=== PATIENT | female | born 1970 | race Caucasian/White ===

== ENCOUNTER 2016-07-02 01:03 | Inpatient (IN) | payer BC ==
[2016-07-02] MEDS ORDERED: ONDANSETRON 4 MG/2 ML VIAL IVP STA (01:54)
[2016-07-02] MEDS ORDERED: BACLOFEN 10 MG TAB PO STA (01:55)
[2016-07-02] MEDS ORDERED: MORPHINE SULFATE 4 MG/ML SYRINGE IV STA ×2 (02:08→05:32)
[2016-07-02 02:57] LABS: Amorphous Sediment,Urine Occasional /hpf; Appearance,Urine Cloudy (Clear); Bacteria,Urine Rare /hpf; Bilirubin,Urine Negative (Negative); Glucose,Urine (UA) Negative (Negative); Granular Casts,Urine 1 /lpf (0); Ketones,Urine Negative (Negative); Leukocyte Esterase,Urine Negative (Negative); Mucus,Urine Rare /hpf; Nitrite,Urine Negative (Negative); PH, Urine 6.5 (5.0-8.0); Particle Count 6167; Protein,Urine Trace (Negative); RBC,Urine 8 /hpf (0-5); Specific Gravity,Urine 1.016 (1.001-1.035); Squamous Epithelial Cell,Urine 8 /hpf (0-4); UA Billing (MACRO vs. MICRO) MICRO; Urobilinogen,Urine <2.0 mg/dL (<2.0); WBC,Urine 7 /hpf (0-5)
--- NOTE | 2016-07-02 03:03 | XR ---
EXAM: XR Right Tib/Fib CLINICAL HISTORY: Reason: Pain TECHNIQUE: X-ray right tib/fib. COMPARISON: No relevant prior studies available. FINDINGS: No acute fracture. Mild degenerative changes. Possible soft tissue swelling versus body habitus. IMPRESSION: No acute fracture.
--- NOTE | 2016-07-02 03:10 | ED ---
Lower Extremity Injury HPI - General Chief Complaint: Extremity Injury, Lower Stated Complaint: FALL Time Seen by Provider: 07/02/16 01:19 Source: patient, family Mode of arrival: EMS Limitations: no limitations - History of Present Illness Initial Comments: This patient is a 45-year-old woman with history of MS, who presents to be evaluated for a right ankle injury. The patient states that she had not been feeling well for much of the day, including having some worsening of the spasms that she usually gets. She states that she had gone out to get into her van, after a visit at her sister's home tonight. She states that she felt too weak to get into the van, slumped against the side of it and then went to the ground. She believes that her ankle twisted. She denies any other injury, stating she did not hit her head or neck, chest, back or abdomen. MD Complaint: ankle injury Onset/Timin -: hour(s) Injury: Ankle: Right Type of Injury: blunt Place: street/outdoors Severity: moderate Improves With: nothing Worsens With: weight bearing Context: fall Associated Symptoms: unable to bear weight - Related Data Allergies Allergy/AdvReac Type Severity Reaction Status Date / Time erythromycin base Allergy Rash/Hives Verified 07/02/16 01:32 Penicillins Allergy Rash/Hives Verified 07/02/16 01:32 Review of Systems ROS Statement: Those systems with pertinent positive or pertinent negative responses have been documented in the HPI. ROS Other: All systems not noted in ROS Statement are negative. Constitutional: Reports: weakness (Bilateral legs). Denies: fever, chills Respiratory: Denies: cough, dyspnea Cardiovascular: Denies: chest pain, palpitations, edema Gastrointestinal: Denies: abdominal pain, vomiting, diarrhea Genitourinary: Denies: dysuria Musculoskeletal: Reports: as per HPI, arthralgia. Denies: back pain Skin: Denies: rash Neurological: Reports: weakness. Denies: headache, numbness Past Medical History Past Medical History: Fibromyalgia, GERD/Reflux, Hypertension Additional Past Medical History / Comment(s): MS, endometriosis History of Any Multi-Drug Resistant Organisms: None Reported Past Surgical History: Section, Orthopedic Surgery Additional Past Surgical History / Comment(s): right hip, left foot , left knee , 3 laps for endometriosis Past Psychological History: No Psychological Hx Reported Smoking Status: Current every day smoker Past Alcohol Use History: Occasional Past Drug Use History: None Reported General Exam Limitations: no limitations General appearance: alert, obese Head exam: Present: atraumatic, normocephalic Eye exam: Present: normal appearance. Absent: scleral icterus, conjunctival injection Neck exam: Present: normal inspection, full ROM Respiratory exam: Present: normal lung sounds bilaterally. Absent: respiratory distress, wheezes, rales, rhonchi, stridor Cardiovascular Exam: Present: regular rate, normal rhythm, normal heart sounds. Absent: systolic murmur, diastolic murmur, rubs, gallop Extremities exam: Present: normal inspection, tenderness, normal capillary refill, joint swelling, other (The patient has an area of erythema and warmth in the anterior and lateral aspect of the right leg just proximal to the ankle.) . Absent: full ROM, pedal edema, calf tenderness Neurological exam: Present: alert Skin exam: Present: warm, dry, intact, normal color. Absent: rash Course Vital Signs 07/02/16 07/02/16 07/02/16 01:05 03:00 04:00 Temperature 99.1 F Pulse Rate 109 H 130 H 129 H Respiratory 22 20 20 Rate Blood Pressure 163/121 166/103 150/91 O2 Sat by Pulse 98 100 100 Oximetry 07/02/16 04:46 Temperature 100.8 F H Pulse Rate Respiratory Rate Blood Pressure O2 Sat by Pulse Oximetry Medical Decision Making - Medical Decision Making On reevaluation, it is noted that the patient's area of erythema and warmth is now circumferential and concerning for cellulitis. Patient has had fever as well. Antibiotics administered. Patient to be admitted for the initial treatment of the cellulitis of her right lower extremity. - Lab Data Result diagrams: 07/02/16 02:50 07/02/16 02:50 Lab Results 07/02/16 07/02/16 07/02/16 Range/Units 01:30 02:50 02:50 WBC 22.5 H (3.8-10.6) k/uL RBC 4.92 (3.80-5.40) m/uL Hgb 14.4 (11.4-16.0) gm/dL Hct 43.6 (34.0-46.0) % MCV 88.5 (80.0-100.0) fL MCH 29.3 (25.0-35.0) pg MCHC 33.1 (31.0-37.0) g/dL RDW 13.9 (11.5-15.5) % Plt Count 234 (150-450) k/uL Neutrophils % 93 % Lymphocytes % 4 % Monocytes % 2 % Eosinophils % 1 % Basophils % 0 % Neutrophils # 20.8 H (1.3-7.7) k/uL Lymphocytes # 0.9 L (1.0-4.8) k/uL Monocytes # 0.5 (0-1.0) k/uL Eosinophils # 0.1 (0-0.7) k/uL Basophils # 0.1 (0-0.2) k/uL Sodium 143 (137-145) mmol/L Potassium 3.7 (3.5-5.1) mmol/L Chloride 102 (98-107) mmol/L Carbon Dioxide 29 (22-30) mmol/L Anion Gap 12 mmol/L BUN 16 (7-17) mg/dL Creatinine 0.80 (0.52-1.04) mg/dL Est GFR (MDRD) Af Amer >60 (>60 ml/min/1.73 sqM) Est GFR (MDRD) Non-Af >60 (>60 ml/min/1.73 sqM) Glucose 126 H (74-99) mg/dL Plasma Lactic Acid Paul (0.7-2.0) mmol/L Calcium 10.2 (8.4-10.2) mg/dL Total Bilirubin 0.7 (0.2-1.3) mg/dL AST 16 (14-36) U/L ALT 32 (9-52) U/L Alkaline Phosphatase 136 H (38-126) U/L Total Protein 7.5 (6.3-8.2) g/dL Albumin 4.4 (3.5-5.0) g/dL Urine Color Yellow Urine Appearance Cloudy H (Clear) Urine pH 6.5 (5.0-8.0) Ur Specific [place] 1.016 (1.001-1.035) Urine Protein Trace H (Negative) Urine Glucose (UA) Negative (Negative) Urine Ketones Negative (Negative) Urine Blood Trace H (Negative) Urine Nitrite Negative (Negative) Urine Bilirubin Negative (Negative) Urine Urobilinogen <2.0 (<2.0) mg/dL Ur Leukocyte Esterase Negative (Negative) Urine RBC 8 H (0-5) /hpf Urine WBC 7 H (0-5) /hpf Ur Squamous Epith Cells 8 H (0-4) /hpf Amorphous Sediment Occasional H (None) /hpf Urine Bacteria Rare H (None) /hpf Granular Casts 1 (0) /lpf Urine Mucus Rare H (None) /hpf 07/02/16 Range/Units 03:50 WBC (3.8-10.6) k/uL RBC (3.80-5.40) m/uL Hgb (11.4-16.0) gm/dL Hct (34.0-46.0) % MCV (80.0-100.0) fL MCH (25.0-35.0) pg MCHC (31.0-37.0) g/dL RDW (11.5-15.5) % Plt Count (150-450) k/uL Neutrophils % % Lymphocytes % % Monocytes % % Eosinophils % % Basophils % % Neutrophils # (1.3-7.7) k/uL Lymphocytes # (1.0-4.8) k/uL Monocytes # (0-1.0) k/uL Eosinophils # (0-0.7) k/uL Basophils # (0-0.2) k/uL Sodium (137-145) mmol/L Potassium (3.5-5.1) mmol/L Chloride (98-107) mmol/L Carbon Dioxide (22-30) mmol/L Anion Gap mmol/L BUN (7-17) mg/dL Creatinine (0.52-1.04) mg/dL Est GFR (MDRD) Af Amer (>60 ml/min/1.73 sqM) Est GFR (MDRD) Non-Af (>60 ml/min/1.73 sqM) Glucose (74-99) mg/dL Plasma Lactic Acid Paul 1.3 (0.7-2.0) mmol/L Calcium (8.4-10.2) mg/dL Total Bilirubin (0.2-1.3) mg/dL AST (14-36) U/L ALT (9-52) U/L Alkaline Phosphatase (38-126) U/L Total Protein (6.3-8.2) g/dL Albumin (3.5-5.0) g/dL Urine Color Urine Appearance (Clear) Urine pH (5.0-8.0) Ur Specific [place] (1.001-1.035) Urine Protein (Negative) Urine Glucose (UA) (Negative) Urine Ketones (Negative) Urine Blood (Negative) Urine Nitrite (Negative) Urine Bilirubin (Negative) Urine Urobilinogen (<2.0) mg/dL Ur Leukocyte Esterase (Negative) Urine RBC (0-5) /hpf Urine WBC (0-5) /hpf Ur Squamous Epith Cells (0-4) /hpf Amorphous Sediment (None) /hpf Urine Bacteria (None) /hpf Granular Casts (0) /lpf Urine Mucus (None) /hpf Disposition Clinical Impression: Cellulitis, Sepsis affecting skin Disposition: ADMITTED IP TO THIS HOSP Condition: Fair Referrals: Nonstaff,Physician [Primary Care Provider] - 1-2 days
[2016-07-02 03:16] LABS: ALT 32 U/L (9-52); AST 16 U/L (14-36); Alkaline Phosphatase 136 U/L (38-126); Anion Gap 12 mmol/L; Blood Urea Nitrogen 16 mg/dL (7-17); Calcium 10.2 mg/dL (8.4-10.2); Carbon Dioxide 29 mmol/L (22-30); Chloride 102 mmol/L (98-107); Glucose 126 mg/dL (74-99); Non-African American GFR(MDRD) >60 (>60 ml/min/1.73 sqM); Potassium 3.7 mmol/L (3.5-5.1); Sodium 143 mmol/L (137-145); Total Bilirubin 0.7 mg/dL (0.2-1.3); Total Protein 7.5 g/dL (6.3-8.2)
[2016-07-02 03:20] LABS: Basophils # (A) 0.1 k/uL (0-0.2); Basophils % (A) 0 %; CH 29.9; CHCM 33.9; Eosinophils # (A) 0.1 k/uL (0-0.7); Eosinophils % (A) 1 %; HCT 43.6 % (34.0-46.0); HDW 2.72; HGB 14.4 gm/dL (11.4-16.0); Luc # (Auto) 0.08; Luc % (Auto) 0; Lymphocytes # (A) 0.9 k/uL (1.0-4.8); Lymphocytes % (A) 4 %; MCH 29.3 pg (25.0-35.0); MCHC 33.1 g/dL (31.0-37.0); MCV 88.5 fL (80.0-100.0); Mean Platelet Volume 6.6; Monocytes # (A) 0.5 k/uL (0-1.0); Monocytes % (A) 2 %; Neutrophils # (A) 20.8 k/uL (1.3-7.7); Neutrophils % (A) 93 %; RBC 4.92 m/uL (3.80-5.40); RDW 13.9 % (11.5-15.5); WBC 22.5 k/uL (3.8-10.6); WBC (Perox) 22.34
[2016-07-02] MEDS ORDERED: LEVOFLOXACIN 750MG-D5W PMX 750 MG in DEXTROSE/WATER 1 150ML.BAG IVPB STA (03:40)
[2016-07-02] MEDS ORDERED: IV VANCOMYCIN PER PHARMACY 1 EACH MISC MISCELLANE PRN (04:01)
[2016-07-02] MEDS ORDERED: NALOXONE 0.4 MG/ML 1 ML VIAL IV PRN (04:49)
[2016-07-02] MEDS ORDERED: VANCOMYCIN 2,250 MG in SODIUM CHLORIDE 0.9% 500 ML IVPB ONE (05:00)
[2016-07-02] MEDS: SODIUM CHLORIDE 0.9% 1,000 ML IV SCH ×2 (05:21→16:26)
[2016-07-02] MEDS ORDERED: SODIUM CHLORIDE 0.9% 1,000 ML IV ONE (05:32)
[2016-07-02] MEDS: ACETAMINOPHEN TAB 325 MG TAB PO PRN ×2 (06:12→22:06)
[2016-07-02 09:42] VITALS: BMI 54.8
[2016-07-02] MEDS: HEPARIN SODIUM,PORCINE 5,000 UNIT/ML 1 ML VIAL SQ SCH ×2 (10:00→16:26)
[2016-07-02] MEDS: VANCOMYCIN 2,250 MG in SODIUM CHLORIDE 0.9% 500 ML IVPB SCH (10:00)
[2016-07-02] MEDS: MORPHINE SULFATE 4 MG/ML SYRINGE IV PRN ×2 (10:17→17:14)
[2016-07-02] MEDS ORDERED: DEXTROAMPHETAMINE PO SCH (14:00)
[2016-07-02] MEDS ORDERED: AMPHETAMINE PO SCH (14:00)
[2016-07-02] MEDS: BACLOFEN 10 MG TAB PO SCH ×2 (14:03→20:22)
[2016-07-02] MEDS: PANTOPRAZOLE 40 MG TABLET PO SCH (14:03)
[2016-07-02] MEDS: OXcarbazepine 300 MG TAB PO SCH ×2 (14:03→20:21)
[2016-07-02] MEDS: tiZANidine 4 MG TAB PO SCH ×2 (14:04→20:22)
--- NOTE | 2016-07-02 14:36 | HP ---
DATE OF ADMISSION: 07/02/2016 CHIEF COMPLAINT: Increased generalized weakness and worsening of her spasms. HISTORY OF PRESENT ILLNESS: Ms. Alanis is a 45-year-old female with a past medical history of multiple sclerosis, morbid obesity, GERD, fibromyalgia, hypertension, coming to the hospital stating that she has been having generalized weakness and increased spasms than usual for the past couple of days. The patient states that she was trying to get to her house and her sister's home when she was trying to get into the van, she felt extremely weak and she could not get into the van and slumped against the side of it and then slowly went to the ground. She denies having any loss of consciousness and she thinks she might have twisted her ankle at that time. She denies having any shortness of breath. No chest pain. No history of recent travel. No history of loss of consciousness. No history of weakness of her extremities. No headaches. No blurring of her vision. Denies having any palpitations, REVIEW OF SYSTEMS: CONSTITUTIONAL: Generalized weakness and fatigue. No fevers or chills. RESPIRATORY: No cough. No difficulty in breathing. CARDIAC: No chest pain or palpitations. GI: No abdominal pain, nausea, or vomiting. : No dysuria or hematuria. MUSCULOSKELETAL: Patient thinks she might have twisted her right ankle when she slumped against the van. ENDOCRINE: Denies having any heat or cold intolerance. SKIN: No skin changes. HEMATOLOGICAL: No history of recurrent infections or easy bruising or petechia. All 13 review of systems are done and negative except for ones mentioned in the HPI. PAST MEDICAL HISTORY: Significant for multiple sclerosis, fibromyalgia, GERD and hypertension. PAST SURGICAL HISTORY: Positive for , orthopedic, right hip and left foot surgery. SOCIAL HISTORY: Current every day smoker. Occasional alcohol use. No history of intravenous drug abuse. ALLERGIES: SHE IS ALLERGIC TO PENICILLIN AND ERYTHROMYCIN. The patient's home medications: 1. Zanaflex 8 mg p.o. 3 times a day. 2. Turmeric root extract 500 mg capsule p.o. b.i.d. 3. Magnesium 40 mg capsule p.o. daily. 4. Vitamin D3 1000 units 2 tablets p.o. daily. 5. Biotin 5 mg p.o. q.h.s. 6. Paroxetine hydrochloride 30 mg p.o. daily. 7. Oxcarbazepine 300 mg p.o. b.i.d. 8. Neurontin 100 mg 2 pills p.o. q.h.s. 9. Interferon Beta 1A IM injection every Sunday. 10. Adderall 25 mg capsule ER p.o. in the morning. 11. Baclofen 20 mg p.o. 3 times a day and 10 mg 3 times a day. FAMILY HISTORY: Positive for hypertension. Vital signs temperature is 99.4, heart rate is 100 to 120 beats per minute, blood pressure 109/74, saturating at 94% on room air. GENERAL EXAMINATION: Morbidly obese female, lying comfortably in bed, appears to be no acute distress. HEAD: Atraumatic, normocephalic. EYES: Pupils, round, and reactive to light. NECK: Short. No thyromegaly. CARDIOVASCULAR: S1, S2 heard. LUNGS: Bilateral breath sounds are positive distantly. ABDOMEN: Soft, nontender. Bowel sounds are positive. Organomegaly cannot be appreciated due to huge body habitus. EXTREMITIES: Right lower extremity has cellulitis which is marked. No breakdown of superficial skin. No edema. No cyanosis. COFFEE URN ATTENDANT: Alert, awake, oriented x3. No focal neurological deficits. PSYCHIATRIC: Appropriate mood and affect. MUSCULOSKELETAL: No joint swellings or deformities. The patient's labs: White count of 22.5, hemoglobin 14.4, platelets of 234. Sodium 143, potassium 3.7, chloride 102, bicarb 29, BUN 16, creatinine 0.80. ASSESSMENT AND PLAN: 1. Sepsis secondary to right lower extremity cellulitis. The patient has been started on vancomycin, which is will be continued. 2. Multiple sclerosis. 3. Generalized weakness most likely secondary to #1. 4. Tachycardia. Most likely secondary to her sepsis. We will put her on a telemonitor. 5. History of fibromyalgia. 6. Hypertension. 7. Gastroesophageal reflux disease. 8. History of endometriosis. 9. Nicotine dependence. PLAN: The plan is to continue the patient on IV vancomycin, put her on a telemonitoring bed. We will resume her home medications and further recommendations to follow depending on the progress of the patient. MTDD
[2016-07-02] MEDS: GABAPENTIN 100 MG CAP PO SCH (20:22)
[2016-07-02] MEDS ORDERED: NON-FORMULARY DRUG (Biotin [Biotin] 5 MG) PO SCH (21:00)
[2016-07-03] MEDS: SODIUM CHLORIDE 0.9% 1,000 ML IV SCH ×4 (02:49→20:12)
[2016-07-03] MEDS: HEPARIN SODIUM,PORCINE 5,000 UNIT/ML 1 ML VIAL SQ SCH ×4 (02:49→22:59)
[2016-07-03] MEDS: VANCOMYCIN 2,250 MG in SODIUM CHLORIDE 0.9% 500 ML IVPB SCH (02:49)
[2016-07-03 07:24] LABS: Basophils % (A) 0 %; CH 29.5; CHCM 32.5; Eosinophils # (A) 0.1 k/uL (0-0.7); Eosinophils % (A) 1 %; HCT 36.2 % (34.0-46.0); HDW 2.73; HGB 11.6 gm/dL (11.4-16.0); Luc # (Auto) 0.17; Luc % (Auto) 2; Lymphocytes # (A) 1.4 k/uL (1.0-4.8); Lymphocytes % (A) 13 %; MCH 29.2 pg (25.0-35.0); MCV 91.2 fL (80.0-100.0); Mean Platelet Volume 6.7; Monocytes # (A) 0.5 k/uL (0-1.0); Monocytes % (A) 5 %; Neutrophils # (A) 8.4 k/uL (1.3-7.7); Neutrophils % (A) 79 %; RBC 3.97 m/uL (3.80-5.40); WBC 10.7 k/uL (3.8-10.6); WBC (Perox) 11.25
[2016-07-03] MEDS: MORPHINE SULFATE 4 MG/ML SYRINGE IV PRN ×3 (07:28→22:28)
[2016-07-03 08:05] LABS: Calcium 8.6 mg/dL (8.4-10.2); Potassium 4.2 mmol/L (3.5-5.1)
[2016-07-03] MEDS: PARoxetine 10 MG TAB PO SCH (08:45)
[2016-07-03] MEDS: CHOLECALCIFEROL 1,000 UNIT TAB PO SCH (08:46)
[2016-07-03] MEDS: BACLOFEN 10 MG TAB PO SCH ×3 (08:46→21:05)
[2016-07-03] MEDS: tiZANidine 4 MG TAB PO SCH ×3 (08:47→21:05)
[2016-07-03] MEDS: PANTOPRAZOLE 40 MG TABLET PO SCH (08:47)
[2016-07-03] MEDS: OXcarbazepine 300 MG TAB PO SCH ×2 (08:47→20:12)
[2016-07-03] MEDS ORDERED: INTERFERON BETA 30 MCG IM SCH (13:37)
--- NOTE | 2016-07-03 13:49 | US ---
EXAMINATION TYPE: US venous doppler duplex LE DATE OF EXAM: 07/03/2016 1:36 PM COMPARISON: NONE CLINICAL HISTORY: rule out dvt. Bilateral leg pain, patient on blood thinners, obese patient, exam do ne portable SIDE PERFORMED: Bilateral TECHNIQUE: The lower extremity deep venous system is examined utilizing real time linear array sonog nando with graded compression, doppler sonography and color-flow sonography. VESSELS IMAGED: External Iliac Vein (EIV) Common Femoral Vein Deep Femoral Vein Greater Saphenous Vein * Femoral Vein Popliteal Vein Small Saphenous Vein * Proximal Calf Veins (* superficial vessels) Technically difficult and limited study due to patient body habitus Right Leg: Appears negative for DVT Left Leg: Appears negative for DVT No popliteal fossa lesion is seen. IMPRESSION: THIS EXAMINATION IS NEGATIVE FOR DVT IN BOTH LEGS.
[2016-07-03 18:51] LABS: Glucose,Whole Blood 155 mg/dL (75-99)
[2016-07-03] MEDS ORDERED: HYDROcodone/APAP 5-325MG 1 EACH TAB PO PRN (20:10)
[2016-07-03] MEDS: GABAPENTIN 100 MG CAP PO SCH (20:12)
[2016-07-04] MEDS: MORPHINE SULFATE 4 MG/ML SYRINGE IV PRN (02:29)
[2016-07-04] MEDS: SODIUM CHLORIDE 0.9% 1,000 ML IV SCH ×2 (02:30→13:10)
[2016-07-04 07:18] LABS: Basophils % (A) 0 %; CH 29.1; CHCM 32.4; Eosinophils # (A) 0.2 k/uL (0-0.7); Eosinophils % (A) 2 %; HCT 32.3 % (34.0-46.0); HDW 2.98; HGB 10.8 gm/dL (11.4-16.0); Luc # (Auto) 0.19; Luc % (Auto) 2; Lymphocytes # (A) 1.4 k/uL (1.0-4.8); Lymphocytes % (A) 15 %; MCH 30.1 pg (25.0-35.0); MCHC 33.4 g/dL (31.0-37.0); MCV 90.1 fL (80.0-100.0); Mean Platelet Volume 6.8; Monocytes # (A) 0.4 k/uL (0-1.0); Monocytes % (A) 4 %; Neutrophils # (A) 7.4 k/uL (1.3-7.7); Neutrophils % (A) 76 %; RBC 3.58 m/uL (3.80-5.40); WBC 9.6 k/uL (3.8-10.6); WBC (Perox) 10.25
[2016-07-04 07:53] LABS: Calcium 8.6 mg/dL (8.4-10.2); Potassium 4.6 mmol/L (3.5-5.1)
[2016-07-04] MEDS: tiZANidine 4 MG TAB PO SCH ×3 (08:41→21:57)
[2016-07-04] MEDS: CLINDAMYCIN 150 MG CAP PO SCH ×2 (08:42→18:48)
[2016-07-04] MEDS: HEPARIN SODIUM,PORCINE 5,000 UNIT/ML 1 ML VIAL SQ SCH ×2 (08:42→18:10)
[2016-07-04] MEDS: PANTOPRAZOLE 40 MG TABLET PO SCH (08:42)
[2016-07-04] MEDS: BACLOFEN 10 MG TAB PO SCH ×2 (08:43→21:56)
[2016-07-04] MEDS: PARoxetine 10 MG TAB PO SCH (08:43)
[2016-07-04] MEDS: OXcarbazepine 300 MG TAB PO SCH ×2 (08:43→21:56)
[2016-07-04] MEDS ORDERED: CLINDAMYCIN 150 MG CAP PO SCH (09:00)
--- NOTE | 2016-07-04 09:36 | PN ---
DATE OF SERVICE: 07/03/2016 This 45-year-old woman who was admitted with significant cellulitis of the right leg, is on IV antibiotics. No chest pain or palpitations. No fever. The patient is also complaining of increasing tiredness and weakness. The patient also has history of multiple sclerosis also. REVIEW OF SYSTEMS: CARDIOVASCULAR: No angina or palpitations. RESPIRATORY: As mentioned earlier. GI: As mentioned earlier. : No dysuria. NERVOUS SYSTEM: No numbness or weakness. Current medications are reviewed and include Tylenol 650 q.6 p.r.n., Scott 10 mg, Lioresal, Vitamin D3, Cleocin, Neurontin, heparin, morphine, Narcan, Zofran, Trileptal, Protonix, Paxil, Silvadene, 0.9, Zanaflex and vancomycin. On exam, alert and oriented x3. Pulse is 77, blood pressure 93/58, respirations 16, temperature 98 degrees, pulse ox 94% on room air. HEENT: Conjunctivae normal. NECK: No jugular venous distention. CARDIOVASCULAR: S1 and S2, muffled. RESPIRATORY: Breath sounds diminished at the bases. No rhonchi, no crackles. ABDOMEN: Soft, obese, nontender. LEGS: Right leg cellulitis and erythema. Tenderness also present, which is marked with pen. NERVOUS SYSTEM: Higher function as mentioned. Moves all 4 limbs. Mildly diffusely weak. LYMPHATICS: No lymphadenopathy of neck, axillae or groin. SKIN: No ulcers, rashes or bleeding. LABS: WBC 10.7. Creatinine is 2.42. ASSESSMENT: 1. Acute cellulitis of the right leg on vancomycin. 2. Generalized tiredness and weakness for evaluation, rule out multiple sclerosis exacerbation . 3. Acute renal failure, possibly prerenal, or vancomycin induced. 4. History of multiple sclerosis. 5. Generalized weakness. 6. Tachycardia. 7. History of fibromyalgia. 8. Dehydration. 9. Hypertension, essential, present on admission. 10. Relative hypotension, currently. 11. Gastroesophageal reflux disease. 12. History of endometriosis. 13. History of nicotine dependence. 14. Super morbid obesity with body mass index of 54.9. 15. FULL CODE. RECOMMENDATIONS AND DISCUSSION: This 45-year-old woman who presented the multiple complex medical issues, we will we will monitor the patient closely, continue the current medications, continue with symptomatic treatment. I would recommend stop the vancomycin at this time. Otherwise, I would recommend Nephrology consultations. IV fluids. Avoid nephrotoxic medications. Other than that guarded prognosis. Further recommendations to follow. I would recommend local treatment as well. Further recommendations to follow.
--- NOTE | 2016-07-04 12:28 | P.NPCON ---
History of Present Illness - Reason for Consult acute renal failure - History of Present Illness Reason for consultation: Acute kidney injury History of present illness: Patient is a 45-year-old female seen in renal consultation for acute kidney injury. Her creatinine was 0.8 on admission on 07/02/2016 and was elevated at 2.42 yesterday. He is up to 4.28. Patient has history of multiple sclerosis. Patient states she felt quite weak and also sustained a fall and twisted her ankle. There is no evidence of fracture. She is noted to have right lower extremity cellulitis which is currently wrapped. She did receive IV vancomycin on admission but is now onclindamycin. She also admits to taking Motrin 800 mg twice daily for the last few months for pain control. She states the oral intake has been poor for the last few days. She denies any vomiting or diarrhea. Denies any chest pain or shortness of breath. Denies lower extremity edema. Hemodynamically she's been quite stable except her blood pressures are on the lower end of the systolic 90s. Denies any family history of renal disease. Vital signs are stable. General: The patient appeared well nourished and normally developed. HEENT: Head exam is unremarkable. Neck is without jugular venous distension. LUNGS: Lungs are clear to auscultation and percussion. Breath sounds decreased. HEART: Rate and Rhythm are regular. First and second heart sounds normal. No murmurs, rubs or gallops. ABDOMEN: Abdominal exam reveals normal bowel sounds. Non-tender and non- distended. No evidence of peritonitis. EXTREMITITES: No clubbing, cyanosis, or edema. Past Medical History Past Medical History: Fibromyalgia, GERD/Reflux, Hypertension Additional Past Medical History / Comment(s): MS, endometriosis History of Any Multi-Drug Resistant Organisms: None Reported Past Surgical History: Section, Orthopedic Surgery Additional Past Surgical History / Comment(s): right hip, left foot , left knee , 3 laps for endometriosis, hysterectomy Past Anesthesia/Blood Transfusion Reactions: No Reported Reaction Past Psychological History: No Psychological Hx Reported Smoking Status: Current every day smoker Past Alcohol Use History: Occasional Past Drug Use History: None Reported - Past Family History Mother Family Medical History: Thyroid Disorder Additional Family Medical History / Comment(s): MS, Father Family Medical History: Hypertension Medications and Allergies Home Medications Medication Instructions Recorded Confirmed Type Baclofen [Lioresal] 10 mg PO TID 07/02/16 07/02/16 History Baclofen [Lioresal] 20 mg PO TID 07/02/16 07/02/16 History Biotin 5 mg PO HS 07/02/16 07/02/16 History Cholecalciferol [Vitamin D3] 2,000 unit PO DAILY 07/02/16 07/02/16 History Dextroamphetamine/Amphetamine 25 mg PO QAM 07/02/16 07/02/16 History [Adderall Xr] Esomeprazole Magnesium [NexIUM] 40 mg PO DAILY 07/02/16 07/02/16 History Gabapentin [Neurontin] 200 mg PO HS 07/02/16 07/02/16 History Interferon Beta-1A [Avonex 30 MCG 30 mcg IM MO 07/02/16 07/02/16 History Syringe Kit] OXcarbazepine [Trileptal] 300 mg PO BID 07/02/16 07/02/16 History PARoxetine HCL [Paxil] 30 mg PO DAILY 07/02/16 07/02/16 History Turmeric Root Extract [Turmeric] 500 mg PO BID 07/02/16 07/02/16 History tiZANidine [Zanaflex] 8 mg PO TID 07/02/16 07/02/16 History Allergies Allergy/AdvReac Type Severity Reaction Status Date / Time erythromycin base Allergy Rash/Hives Verified 07/02/16 09:44 Penicillins Allergy Rash/Hives Verified 07/02/16 09:44 Physical Exam Vitals: Vital Signs Temp Pulse Pulse Pulse Resp BP Pulse Ox 07/04/16 07:00 98.3 F 78 16 93/59 100 07/03/16 23:00 98.0 F 74 20 98/55 94 L 07/03/16 19:57 95/57 07/03/16 19:54 98.0 F 77 16 93/58 94 L 07/03/16 15:29 99 85 16 07/03/16 14:22 98.4 F 85 16 92/57 94 L Intake and Output 07/03/16 07/04/16 07/04/16 22:59 06:59 14:59 Output Total 75 Balance -75 Output: Urine 75 Other: Voiding Method Bedside Commode # Voids 1 1 Results - Lab Results Most recent lab results Calcium 8.6 mg/dL (8.4-10.2) 07/04/16 06:48 07/04/16 06:48 07/04/16 06:48 Assessment and Plan Plan: assessment: #1. Oliguric acute kidney injury secondary to ATN secondary to NSAIDs and poor oral intake. Also concern for vancomycin toxicity. Baseline creatinine is 0.8 and is up to 4.28 today. Rule out urinary retention. #2. Right lower extremity cellulitis. #3. History of multiple sclerosis. #4. Metabolic acidosis secondary to acute kidney injury. plan: Continue normal saline to be run at 125 mL an hour. At oral sodium bicarbonate 650 mg twice daily. Repeat urinalysis. Check urine eosinophils. Check renal ultrasound. Monitor serial postvoid residuals and to insert Hawkins catheter greater than 250 mL present. Repeat electrolytes in the morning. I did discuss with the patient that if her renal function doesn't improve in the next 24-48 hours, will need to consider renal replacement therapy. Thank you for the consultation. I will continue to follow the patient with you during her hospital stay.
[2016-07-04] MEDS: SODIUM BICARBONATE TAB 650 MG TAB PO SCH ×2 (12:53→21:56)
[2016-07-04] MEDS: CHOLECALCIFEROL 1,000 UNIT TAB PO SCH (12:53)
[2016-07-04 13:02] LABS: Appearance,Urine Turbid (Clear); Bacteria,Urine Rare /hpf; Bilirubin,Urine Negative (Negative); Glucose,Urine (UA) Negative (Negative); Ketones,Urine Negative (Negative); Leukocyte Esterase,Urine Small (Negative); Mucus,Urine Rare /hpf; Nitrite,Urine Negative (Negative); Particle Count 45809; Protein,Urine 1+ (Negative); RBC,Urine 1 /hpf (0-5); Specific Gravity,Urine 1.014 (1.001-1.035); Squamous Epithelial Cell,Urine 43 /hpf (0-4); UA Billing (MACRO vs. MICRO) MICRO; Urobilinogen,Urine <2.0 mg/dL (<2.0)
--- NOTE | 2016-07-04 13:50 | US ---
EXAMINATION TYPE: US kidneys/renal and bladder DATE OF EXAM: 07/04/2016 1:24 PM COMPARISON: NONE CLINICAL HISTORY: 45-year-old female with acute kidney injury. TECHNIQUE: Multiple sonographic images of the kidneys and bladder were obtained. FINDINGS: DRIVE IN THEATER ATTENDANT NOTES: Morbidly obese patient Right Kidney: 13.9 x 5.1 x 6.6 cm Left Kidney: 13.0 x 5.9 x 6.9 cm Borderline large size of the kidneys possibly normal for this patient. Clinically correlate. There is no hydronephrosis on either side. Under distention of the bladder limits its evaluation. IMPRESSION: As above. No hydronephrosis.
[2016-07-04] MEDS ORDERED: ceFAZolin 2 GM in SODIUM CHLORIDE 0.9% 100 ML IVPB SCH (17:30)
--- NOTE | 2016-07-04 18:25 | PN ---
DATE OF SERVICE: 07/04/2016 This 45-year-old woman was admitted with cellulitis and recently on vancomycin. The patient also developed acute renal failure. Creatinine is up to 4. Patient is nonoliguric. The patient was also taking Motrin previously. The patient is closely monitored. PAST MEDICAL HISTORY: Reviewed. REVIEW OF SYSTEMS: CARDIOVASCULAR: No angina. RESPIRATORY: As mentioned earlier. GI: As mentioned earlier. : No dysuria. NERVOUS SYSTEM: No numbness or weakness. Current medications are reviewed and include: 1. Tylenol 650 q.6 p.r.n. 2. Melvin 10 mg. 3. Lioresal 4. Vitamin D3 2000 daily. 5. Cleocin. 6. Neurontin. 7. Heparin. 8. Narcan. 9. Interferon B. 10. Zofran. 11. Trileptal. 12. Protonix. 13. Paxil. 15. Zanaflex. PHYSICAL EXAMINATION: Patient is alert and oriented x3. Pulse is 74, blood pressure 115/40, no orthostatic change, respirations 20, temperature 98.2, pulse ox 100% on room air. HEENT: Conjunctivae normal. NECK: No jugular venous distention. CARDIOVASCULAR: S1 and S2. RESPIRATORY: Breath sounds diminished at the bases. No rhonchi, no crackles. ABDOMEN: Soft, obese, nontender. LEGS: right leg cellulitis improving. NERVOUS SYSTEM: Higher function as mentioned. Moves all four limbs. No focal motor deficits. LYMPHATIC: No lymphadenopathy in the neck, axillae or groin. SKIN: No ulcer, rash or bleeding. LABS: WBC 9.3, hemoglobin 10.2, sodium 134, creatinine is 4.28. UA shows small leukocyte esterase and budding yeast. Abdominal bladder ultrasound showed no hydronephrosis. Venous Doppler of the legs done yesterday showed no evidence of DVT. ASSESSMENT: 1. Acute cellulitis of the right leg, was on vancomycin. 2. Acute renal failure, possibly prerenal with acute tubular necrosis, medication-induced, possibly NSAIDs, dehydration as well as vancomycin. 3. Generalized tiredness and weakness for evaluation; possibly rule out multiple sclerosis acute exacerbation. 4. History of multiple sclerosis. 5. Generalized weakness. 6. Tachycardia. 7. History of fibromyalgia. 8. Dehydration, present admission. 9. Hypertension, essential, present on admission. 10. History of hypotension relative. 11. Gastroesophageal reflux disease. 12. History of endometriosis. 13. History of nicotine dependence. 14. Super morbid obesity, body mass index of 54.9. 15. FULL CODE. RECOMMENDATIONS AND DISCUSSION: I recommend to continue the current medications, continue monitoring and symptomatic treatment. Otherwise, at this time I would recommend to monitor the creatinine closely. Continue with IV fluids. Also recommend Infectious Disease evaluation also. Prognosis guarded. Further recommendations to follow. See orders for details. MTDD
[2016-07-04] MEDS: GABAPENTIN 100 MG CAP PO SCH (21:56)
--- NOTE | 2016-07-04 22:17 | P.CNNES ---
History of Present Illness Consult date: 07/04/16 History of Present Illness: The patient 45-year-old right-handed white female with a history of multiple sclerosis diagnosed in 2002. She's been on Avonex for the past 8 years. Her MS has been stable. 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 She started using the walker last November and prior to that she was using a cane. She states she's had a recent MRI of the brain and thoracic spine which did not show any problems. Patient reports that she was at her sister's house last Sunday when she was felt general weakness and wanted to go home. She then collapsed on her feet and could not get up. EMS was called and she was brought to the ER. It was found that she had a of warmth and tenderness and redness in the right ankle and she was admitted with cellulitis. Review of Systems Constitutional: Denies chills, Denies fever Eyes: denies blurred vision, denies pain Ears, nose, mouth and throat: Denies headache, Denies sore throat Cardiovascular: Denies chest pain, Denies shortness of breath Respiratory: Denies cough Neurological: Reports as per HPI Past Medical History Past Medical History: Fibromyalgia, GERD/Reflux, Hypertension Additional Past Medical History / Comment(s): MS, endometriosis History of Any Multi-Drug Resistant Organisms: None Reported Past Surgical History: Section, Orthopedic Surgery Additional Past Surgical History / Comment(s): right hip, left foot , left knee , 3 laps for endometriosis, hysterectomy Past Anesthesia/Blood Transfusion Reactions: No Reported Reaction Past Psychological History: No Psychological Hx Reported Smoking Status: Current every day smoker Past Alcohol Use History: Occasional Past Drug Use History: None Reported - Past Family History Mother Family Medical History: Thyroid Disorder Additional Family Medical History / Comment(s): MS, Father Family Medical History: Hypertension Medications and Allergies Home Medications Medication Instructions Recorded Confirmed Type Baclofen [Lioresal] 10 mg PO TID 07/02/16 07/02/16 History Baclofen [Lioresal] 20 mg PO TID 07/02/16 07/02/16 History Biotin 5 mg PO HS 07/02/16 07/02/16 History Cholecalciferol [Vitamin D3] 2,000 unit PO DAILY 07/02/16 07/02/16 History Dextroamphetamine/Amphetamine 25 mg PO QAM 07/02/16 07/02/16 History [Adderall Xr] Esomeprazole Magnesium [NexIUM] 40 mg PO DAILY 07/02/16 07/02/16 History Gabapentin [Neurontin] 200 mg PO HS 07/02/16 07/02/16 History Interferon Beta-1A [Avonex 30 MCG 30 mcg IM MO 07/02/16 07/02/16 History Syringe Kit] OXcarbazepine [Trileptal] 300 mg PO BID 07/02/16 07/02/16 History PARoxetine HCL [Paxil] 30 mg PO DAILY 07/02/16 07/02/16 History Turmeric Root Extract [Turmeric] 500 mg PO BID 07/02/16 07/02/16 History tiZANidine [Zanaflex] 8 mg PO TID 07/02/16 07/02/16 History Allergies Allergy/AdvReac Type Severity Reaction Status Date / Time erythromycin base Allergy Rash/Hives Verified 07/02/16 09:44 Penicillins Allergy Rash/Hives Verified 07/02/16 09:44 Physical Examination - Vital Signs Vital Signs: Vital Signs Temp Pulse Pulse Pulse Pulse Pulse Pulse 07/04/16 16:00 74 99 72 73 78 85 07/04/16 12:33 74 72 73 07/04/16 08:00 74 99 72 73 78 85 07/04/16 07:00 98.3 F 78 07/03/16 23:00 98.0 F 74 Resp BP BP BP BP Pulse Ox 07/04/16 16:00 16 07/04/16 12:33 115/49 134/63 100/57 07/04/16 08:00 16 07/04/16 07:00 16 93/59 100 07/03/16 23:00 20 98/55 94 L Intake and Output 07/04/16 07/04/16 07/04/16 06:59 14:59 22:59 Intake Total 2080 580 Output Total 175 400 Balance 1905 180 Intake: IV 1300 Sodium Chloride 0.9% 1, 1300 000 ml @ 125 mls/hr IV . Q8H LEATHA Rx#:[id number] Oral 780 580 Output: Urine 150 400 Post Void Residual 25 Other: Voiding Method Bedside Commode Bedside Commode # Voids 1 1 1 - Constitutional General appearance: cooperative, obese - EENT EENT: PERRL, hearing intact, vision intact - Respiratory Respiratory: lungs clear - Cardiovascular Cardiovascular: regular rate, normal S1, normal S2 - Integumentary Integumentary: normal - Neurologic Mental status she was awake alert and oriented chance of questions appropriately there is no aphasia or dysarthria Cranial nerve examination: PERRL, EOMI, VFF, V1/V2/V3 grossly intact, face symmetric Speech examination: intact Detailed motor examination: grossly full strength in all extremities Detailed sensory examination: intact - Psychiatric Psychiatric: mood/affect appropriate Results - Laboratory Findings CBC and BMP: 07/04/16 06:48 07/04/16 06:48 Abnormal Lab Findings: Abnormal Labs 07/02/16 07/02/16 07/02/16 01:30 02:50 02:50 WBC 22.5 H RBC Hgb Hct Neutrophils # 20.8 H Lymphocytes # 0.9 L Sodium Chloride Carbon Dioxide BUN Creatinine Glucose 126 H POC Glucose (mg/dL) Alkaline Phosphatase 136 H Urine Appearance Cloudy H Urine Protein Trace H Urine Blood Trace H Ur Leukocyte Esterase Urine RBC 8 H Urine WBC 7 H Ur Squamous Epith Cells 8 H Amorphous Sediment Occasional H Urine Bacteria Rare H Urine Mucus Rare H Urine Yeast (Budding) 07/03/16 07/03/16 07/03/16 06:26 06:26 18:50 WBC 10.7 H RBC Hgb Hct Neutrophils # 8.4 H Lymphocytes # Sodium Chloride 108 H Carbon Dioxide 19 L BUN 31 H Creatinine 2.42 H Glucose POC Glucose (mg/dL) 155 H Alkaline Phosphatase Urine Appearance Urine Protein Urine Blood Ur Leukocyte Esterase Urine RBC Urine WBC Ur Squamous Epith Cells Amorphous Sediment Urine Bacteria Urine Mucus Urine Yeast (Budding) 07/04/16 07/04/16 07/04/16 06:48 06:48 11:45 WBC RBC 3.58 L Hgb 10.8 L Hct 32.3 L Neutrophils # Lymphocytes # Sodium 134 L Chloride Carbon Dioxide 19 L BUN 42 H Creatinine 4.28 H Glucose 133 H POC Glucose (mg/dL) Alkaline Phosphatase Urine Appearance Turbid H Urine Protein 1+ H Urine Blood Small H Ur Leukocyte Esterase Small H Urine RBC Urine WBC Ur Squamous Epith Cells 43 H Amorphous Sediment Urine Bacteria Rare H Urine Mucus Rare H Urine Yeast (Budding) Few H Assessment and Plan (1) Cellulitis Status: Acute Code(s): L03.90 - CELLULITIS, UNSPECIFIED (2) Multiple sclerosis Status: Chronic Code(s): G35 - MULTIPLE SCLEROSIS Plan: The patient is a 45-year-old woman with multiple sclerosis which has been stable. She is admitted to the hospital after an episode of sudden weakness and fall without loss of consciousness. She is being treated for right leg cellulitis. Recommend carotid ultrasound. She was advised that she have a sleep study done as an outpatient to rule out LILY . There is no evidence of an MS exacerbation.
[2016-07-05] MEDS: HEPARIN SODIUM,PORCINE 5,000 UNIT/ML 1 ML VIAL SQ SCH ×4 (00:32→23:07)
[2016-07-05] MEDS: SODIUM CHLORIDE 0.9% 1,000 ML IV SCH ×4 (00:32→20:19)
[2016-07-05] MEDS: HYDROcodone/APAP 10-325MG 1 EACH TAB PO PRN ×3 (00:35→20:18)
[2016-07-05] MEDS ORDERED: VANCOMYCIN 2,250 MG in SODIUM CHLORIDE 0.9% 500 ML IVPB SCH (06:00)
--- NOTE | 2016-07-05 08:01 | CONS ---
DATE OF CONSULTATION: 07/04/2016 REASON FOR CONSULTATION: Right lower extremity cellulitis. HISTORY OF PRESENT ILLNESS: The patient is a 45-year-old female presenting to the ER at [facility] on 07/02/2016 with chief complaints of right ankle injury. The patient said that she had not been feeling well for most of the day including some usual for her in a patient who has a history of multiple sclerosis. The patient says she went out and continued to hurt after visiting her sister's home that night. She felt so weak to get into the van, slumped and she thought she may have twisted her ankle. Subsequently, the patient been evaluated by the ER physician. X-rays of the ankle were negative for any fracture. Patient noted to have swelling and redness of the leg. Lower extremity Doppler was negative for DVT. The patient did have a fever of 100.8, 101.3, followed by 102 with elevated white count of 22.5. Patient with a history of PENICILLIN ALLERGY but she has tolerated cephalosporin. She was started on vancomycin. The patient did have a normal kidney function on presentation to the ER of 0.8. However, within 24 hours she jumped to 2.42 and is up to 4.2 today with Vanco level of 38.8. She was switched over to clindamycin and Rocephin. I was asked to see the patient today for further recommendation regarding antibiotic therapy. REVIEW OF SYSTEMS: CONSTITUTIONAL: Positive for weakness and a fever that seems to have resolved. EYES: No complaint. ENT: No complaint. RESPIRATORY: No complaint. CARDIOVASCULAR: No complaint. GENITOURINARY: No complaint. GASTROINTESTINAL: No complaint. MUSCULOSKELETAL: As per HPI. INTEGUMENTARY: As per HPI. PSYCHOLOGIC: No complaint. ENDOCRINE: No complaint. NEUROLOGIC: No complaint. PAST MEDICAL HISTORY: Significant for fibromyalgia, hypertension, multiple sclerosis, endometriosis, gastroesophageal reflux disease. PAST SURGICAL HISTORY: , right hip and left foot surgery and left heel surgery and exploratory laparoscopy for endometriosis. SOCIAL HISTORY: The patient currently every day smoker who occasional drinks. No drug use. FAMILY HISTORY: No pertinent findings were noticed. ALLERGIES: ERYTHROMYCIN, PENICILLIN. Penicillin gives rash. No history of anaphylaxis and has taken Keflex without any problem. Medications currently include the patient is on Tylenol, [place], baclofen, vitamin D3, Neurontin, heparin, morphine, Narcan, vitamin A, Trileptal, Zofran, Paxil, clindamycin 600 p.o. t.i.d., that she has been on, vancomycin. On examination, blood pressure is 115/49 with a pulse of 74, temperature 98.3. She is 100% on room air. General description is a middle-age female up in the chair in no distress. No tachypnea or accessory muscle of respiration use. HEENT examination shows pallor. There is no scleral icterus. Oral mucous membrane is dry. NECK: Trachea central. There is no thyromegaly. LUNGS: Unlabored breathing. Clear to auscultation anteriorly. HEART: S1, S2. Regular rate and rhythm. ABDOMEN: Soft. No tenderness. EXTREMITIES: Right leg with swelling and minimal erythema, however, that has receded from the line that was placed yesterday. Slightly warm to touch. No evidence of any athlete's foot. No skin breakdown. No drainage. NEUROLOGICAL: The patient is awake, alert, oriented x3. Mood and affect normal. LABS: Hemoglobin is 10.9, white count 9.6 with a BUN of 42, creatinine 4.28. Blood culture obtained, currently pending. DIAGNOSTIC IMPRESSION AND PLAN: Patient with acute right lower extremity cellulitis with diffuse swelling and redness likely streptococcal disease with no evidence of any pressure or abscess formation. Did respond very well to the vancomycin; however, the patient has developed nephrotoxicity related to the same agent, which has been put on hold. PLAN: 1. Agree with discontinuation of vancomycin. However, I would also discontinue clindamycin to decrease the risk of C. difficile colitis. 2. We will start the patient on cefazolin 1 gram q.12. Dose adjusted to his kidney function. 3. Jayme wrap from just above the toe to below the knee. 4. Will follow up on the clinical condition and further adjust her medication if needed. Thank you for this consultation. We will follow this patient along with you. SHERIN
[2016-07-05] MEDS: ceFAZolin 1,000 MG in DEXTROSE/WATER 1 50ML.BAG IVPB SCH ×2 (08:03→20:19)
[2016-07-05] MEDS: CHOLECALCIFEROL 1,000 UNIT TAB PO SCH (08:04)
[2016-07-05] MEDS: SODIUM BICARBONATE TAB 650 MG TAB PO SCH ×2 (08:05→20:18)
[2016-07-05] MEDS: BACLOFEN 10 MG TAB PO SCH ×2 (08:05→20:17)
[2016-07-05] MEDS: PANTOPRAZOLE 40 MG TABLET PO SCH (08:06)
[2016-07-05] MEDS: OXcarbazepine 300 MG TAB PO SCH ×2 (08:07→20:17)
[2016-07-05] MEDS: PARoxetine 10 MG TAB PO SCH (08:07)
[2016-07-05] MEDS: tiZANidine 4 MG TAB PO SCH ×3 (08:08→23:05)
[2016-07-05] MEDS: ONDANSETRON 4 MG/2 ML VIAL IVP PRN ×2 (08:19→18:20)
[2016-07-05 08:24] LABS: Basophils % (A) 0 %; CH 29.8; CHCM 34.7; Eosinophils # (A) 0.3 k/uL (0-0.7); Eosinophils % (A) 3 %; HCT 33.3 % (34.0-46.0); HGB 11.4 gm/dL (11.4-16.0); Luc # (Auto) 0.14; Luc % (Auto) 2; Lymphocytes # (A) 1.2 k/uL (1.0-4.8); Lymphocytes % (A) 14 %; MCH 29.5 pg (25.0-35.0); MCHC 34.2 g/dL (31.0-37.0); MCV 86.3 fL (80.0-100.0); Monocytes # (A) 0.4 k/uL (0-1.0); Monocytes % (A) 5 %; Neutrophils # (A) 6.4 k/uL (1.3-7.7); Neutrophils % (A) 76 %; RBC 3.86 m/uL (3.80-5.40); RDW 13.9 % (11.5-15.5); WBC 8.4 k/uL (3.8-10.6); WBC (Perox) 8.73
[2016-07-05 08:32] LABS: Calcium 9.2 mg/dL (8.4-10.2); Potassium 4.1 mmol/L (3.5-5.1)
--- NOTE | 2016-07-05 11:15 | P.PN ---
Subjective Patient is seen in follow-up for acute kidney injury. Her baseline creatinine is 0.8 and has been gradually worsening the last couple of days. It was up to 4.28 yesterday and is stable at 4.28 today. Her urine output has improved significantly. Patient presented with lower extremity cellulitis and was given a dose of IV vancomycin. Her vancomycin level as of yesterday was 38.8. Vancomycin is currently held and she is maintained on IV cefazolin per infectious disease recommendations. She's currently sitting up in chair. Denies any chest pain or shortness of breath. No vomiting or diarrhea. Appetite is fair. Vital signs are stable. General: The patient appeared well nourished and normally developed. HEENT: Head exam is unremarkable. Neck is without jugular venous distension. LUNGS: Lungs are clear to auscultation and percussion. Breath sounds decreased. HEART: Rate and Rhythm are regular. First and second heart sounds normal. No murmurs, rubs or gallops. ABDOMEN: Abdominal exam reveals normal bowel sounds. Non-tender and non- distended. No evidence of peritonitis. EXTREMITITES: No clubbing, cyanosis, or edema. Objective - Vital Signs Vital signs: Vital Signs Temp 97.4 F L 07/05/16 07:00 Pulse 61 07/05/16 07:00 Resp 16 07/05/16 08:00 BP 145/85 07/05/16 07:00 Pulse Ox 99 07/05/16 07:00 Intake & Output 07/04/16 07/05/16 07/05/16 18:59 06:59 18:59 Intake Total 2080 3015 120 Output Total 575 350 200 Balance 1505 2665 -80 Intake: IV 1300 1375 Sodium Chloride 0.9% 1, 1300 1375 000 ml @ 125 mls/hr IV . Q8H LEATHA Rx#:[id number] Intake, IV Titration 100 Amount ceFAZolin 2 gm In Sodium 100 Chloride 0.9% 100 ml @ 100 mls/hr IVPB Q8HR LEATHA Rx#:[id number] Oral 780 1540 120 Output: Urine 550 350 200 Post Void Residual 25 Other: Voiding Method Bedside Commode Bedside Commode # Voids 1 - Labs CBC & Chem 7: 07/05/16 07:35 07/05/16 07:35 Labs: Abnormal Lab Results - Last 24 Hours (Table) 07/04/16 07/05/16 07/05/16 Range/Units 11:45 07:35 07:35 Hct 33.3 L (34.0-46.0) % Sodium 134 L (137-145) mmol/L Carbon Dioxide 18 L (22-30) mmol/L BUN 46 H (7-17) mg/dL Creatinine 4.28 H (0.52-1.04) mg/dL Urine Appearance Turbid H (Clear) Urine Protein 1+ H (Negative) Urine Blood Small H (Negative) Ur Leukocyte Esterase Small H (Negative) Ur Squamous Epith Cells 43 H (0-4) /hpf Urine Bacteria Rare H (None) /hpf Urine Mucus Rare H (None) /hpf Urine Yeast (Budding) Few H (None) /hpf Microbiology - Last 24 Hours (Table) 07/02/16 03:50 Blood Culture - Preliminary Blood No Growth after 72 hours Assessment and Plan Plan: assessment: #1. Oliguric - now nonoliguric - acute kidney injury secondary to ATN secondary to NSAIDs and poor oral intake along with vancomycin toxicity. Baseline creatinine is 0.8 and peaked at 4.28 this admission and is stable today. Vancomycin level 38.8 as of July 04. Urine eosinophils negative. No evidence of hydronephrosis noted on renal ultrasound. #2. Right lower extremity cellulitis. #3. History of multiple sclerosis. #4. Metabolic acidosis secondary to acute kidney injury. plan: Continue normal saline to be run at 100 mL an hour. Continue oral sodium bicarbonate 650 mg twice daily. Repeat electrolytes in the morning. I did discuss with the patient that if her renal function doesn't improve in the next 24-48 hours, will need to consider renal replacement therapy. Her urine output has improved and I expect renal recovery over the next few days.
[2016-07-05] MEDS: ACETAMINOPHEN TAB 325 MG TAB PO PRN (11:39)
--- NOTE | 2016-07-05 15:48 | PN ---
DATE OF SERVICE: 07/05/2016 This 45-year-old woman who was admitted with acute cellulitis of the right leg was on vancomycin. The patient also had renal failure, possibly thought to be multifactorial. The patient was oliguric, which is improving at this time. Output was more than a liter yesterday. No chest pain. No palpitation. No fever. On exam, alert and oriented x3. Pulse is 61, blood pressure 145/85, respiration 16, temperature 97.2, pulse ox 99% on room air. HEENT: Conjunctivae normal. NECK: No jugular venous distention. CARDIOVASCULAR SYSTEM: S1, S2 muffled. RESPIRATORY SYSTEM: Breath sounds diminished at the bases. No rhonchi. No crackles. ABDOMEN: Soft, obese. LEGS: Minimal cellulitis. NERVOUS SYSTEM: No focal deficit. LABS: Creatinine 4.28. UA noted. ASSESSMENT: 1. Acute cellulitis of the right leg; was on vancomycin. 2. Acute renal failure, possibly prerenal, with acute tubular necrosis, medication-induced possibly; non-steroidal anti-inflammatory drugs and dehydration as well as vancomycin. 3. Generalized tiredness and weakness for evaluation, possibly. Rule out multiple sclerosis, acute exacerbation. 4. History of multiple sclerosis. 5. Generalized weakness. 6. Tachycardia. 7. History of fibromyalgia. 8. Dehydration, present on admission. 9. Hypertension, essential, present on admission. 10. History of hypotension, relative. 11. Gastroesophageal reflux disease. 12. History of endometriosis. 13. History of nicotine dependence. 14. Super morbid obesity; body mass index of 54.9. 15. FULL CODE. RECOMMENDATIONS AND DISCUSSION: I recommend to continue with the current medications, continue with the monitoring, symptomatic treatment. Otherwise, at this time I recommend continuing with IV fluids. Avoid nephrotoxic medications. Antibiotics per ID. Guarded prognosis because of multiple complex medical issues. Further recommendations to follow.
--- NOTE | 2016-07-05 17:26 | PN ---
DATE OF SERVICE: 07/05/2016 REASON FOR FOLLOWUP: Right lower extremity cellulitis. INTERVAL HISTORY: The patient is afebrile. She is currently breathing comfortably. The patient denies significant chest pain, shortness of breath or cough. No abdominal pain or any diarrhea. On examination, blood pressure is 132/77 with a pulse of 87, temperature of 97.3. She is 100% on room air. General description is a middle-aged female up in the chair in no distress. RESPIRATORY SYSTEM: Unlabored breathing. Clear to auscultation anteriorly. HEART: S1, S2. Regular rate and rhythm. ABDOMEN: Soft. No tenderness. RIGHT LEG: Overall swelling and redness have improved. LABS: Hemoglobin 11.4, white count 8.4. BUN of 46, creatinine 4.28. DIAGNOSTIC IMPRESSION AND PLAN: Patient with acute right lower extremity cellulitis in a patient admitted to hospital with sepsis. Source is likely streptococcal disease. Patient seems to be doing well on cefazolin; that was switched yesterday. That will be continued. Jayem wrap to the leg to keep the swelling down. Family present at the bedside. Their questions were answered.
[2016-07-05] MEDS: GABAPENTIN 100 MG CAP PO SCH (20:18)
[2016-07-06 07:26] LABS: Basophils % (A) 0 %; CH 29.6; CHCM 33.9; Eosinophils # (A) 0.3 k/uL (0-0.7); Eosinophils % (A) 3 %; HCT 34.4 % (34.0-46.0); HDW 3.02; HGB 11.7 gm/dL (11.4-16.0); Luc % (Auto) 1; Lymphocytes # (A) 0.6 k/uL (1.0-4.8); Lymphocytes % (A) 7 %; MCH 29.7 pg (25.0-35.0); MCHC 33.9 g/dL (31.0-37.0); MCV 87.6 fL (80.0-100.0); Monocytes # (A) 0.4 k/uL (0-1.0); Monocytes % (A) 5 %; Neutrophils # (A) 7.3 k/uL (1.3-7.7); Neutrophils % (A) 84 %; RBC 3.93 m/uL (3.80-5.40); RDW 13.6 % (11.5-15.5); WBC 8.8 k/uL (3.8-10.6); WBC (Perox) 9.51
[2016-07-06 07:54] LABS: Calcium 9.1 mg/dL (8.4-10.2); Potassium 4.2 mmol/L (3.5-5.1)
[2016-07-06] MEDS: HYDROcodone/APAP 10-325MG 1 EACH TAB PO PRN (08:09)
[2016-07-06] MEDS: HEPARIN SODIUM,PORCINE 5,000 UNIT/ML 1 ML VIAL SQ SCH ×3 (08:10→23:22)
[2016-07-06] MEDS: PANTOPRAZOLE 40 MG TABLET PO SCH (08:10)
[2016-07-06] MEDS: BACLOFEN 10 MG TAB PO SCH ×2 (08:11→21:36)
[2016-07-06] MEDS: tiZANidine 4 MG TAB PO SCH ×3 (08:12→21:38)
[2016-07-06] MEDS: OXcarbazepine 300 MG TAB PO SCH ×2 (08:12→21:37)
[2016-07-06] MEDS: PARoxetine 10 MG TAB PO SCH (08:12)
[2016-07-06] MEDS: SODIUM BICARBONATE TAB 650 MG TAB PO SCH ×2 (08:12→21:39)
[2016-07-06] MEDS: CHOLECALCIFEROL 1,000 UNIT TAB PO SCH (08:13)
[2016-07-06] MEDS: ceFAZolin 1,000 MG in DEXTROSE/WATER 1 50ML.BAG IVPB SCH ×2 (08:15→21:35)
[2016-07-06] MEDS: SODIUM CHLORIDE 0.9% 1,000 ML IV SCH ×4 (08:15→20:14)
--- NOTE | 2016-07-06 11:16 | P.PN ---
Subjective Patient is seen in follow-up for acute kidney injury. Her baseline creatinine is 0.8. It.peaked at 4.2 at this admission and is mildly improved to 4.18 today. Her urine output has improved significantly. Patient presented with lower extremity cellulitis and was given a dose of IV vancomycin. Her vancomycin level was 38.8 as of July 04 and 28.6 as of July 05 . Vancomycin is currently held and she is maintained on IV cefazolin per infectious disease recommendations. She's currently resting in bed. Denies any chest pain or shortness of breath. No vomiting or diarrhea. Appetite is fair. Vital signs are stable. General: The patient appeared well nourished and normally developed. HEENT: Head exam is unremarkable. Neck is without jugular venous distension. LUNGS: Lungs are clear to auscultation and percussion. Breath sounds decreased. HEART: Rate and Rhythm are regular. First and second heart sounds normal. No murmurs, rubs or gallops. ABDOMEN: Abdominal exam reveals normal bowel sounds. Non-tender and non- distended. No evidence of peritonitis. EXTREMITITES: No clubbing, cyanosis, or edema. Objective - Vital Signs Vital signs: Vital Signs Temp 98.1 F 07/06/16 07:00 Pulse 85 07/06/16 08:00 Resp 14 07/06/16 08:00 BP 170/79 07/06/16 07:00 Pulse Ox 98 07/06/16 07:00 Intake & Output 07/05/16 07/06/16 07/06/16 18:59 06:59 18:59 Intake Total 1095 1475 Output Total 1425 1100 400 Balance -330 375 -400 Intake: IV 875 Sodium Chloride 0.9% 1, 875 000 ml @ 125 mls/hr IV . Q8H LEATHA Rx#:[id number] Intake, IV Titration 100 1475 Amount Sodium Chloride 0.9% 1, 1375 000 ml @ 125 mls/hr IV . Q8H LEATHA Rx#:[id number] ceFAZolin 1,000 mg In 100 100 Dextrose/Water 1 50ml.bag @ 100 mls/hr IVPB Q12HR LEATHA Rx#:[id number] Oral 120 Output: Urine 1425 1100 400 Other: Voiding Method Bedside Commode Bedside Commode # Voids 1 # Bowel Movements 1 - Labs CBC & Chem 7: 07/06/16 07:10 07/06/16 07:10 Labs: Abnormal Lab Results - Last 24 Hours (Table) 07/06/16 07/06/16 Range/Units 07:10 07:10 Lymphocytes # 0.6 L (1.0-4.8) k/uL Sodium 135 L (137-145) mmol/L Carbon Dioxide 19 L (22-30) mmol/L BUN 44 H (7-17) mg/dL Creatinine 4.18 H (0.52-1.04) mg/dL Microbiology - Last 24 Hours (Table) 07/02/16 03:50 Blood Culture - Preliminary Blood No Growth after 96 hours Assessment and Plan Plan: assessment: #1. Oliguric - now nonoliguric - acute kidney injury secondary to ATN secondary to NSAIDs and poor oral intake along with vancomycin toxicity. Baseline creatinine is 0.8 and peaked at 4.28 this admission and is 4.18 today. Vancomycin level 38.8 as of July 04 and 28.6 on July 05. Urine eosinophils negative. No evidence of hydronephrosis noted on renal ultrasound. #2. Right lower extremity cellulitis. #3. History of multiple sclerosis. #4. Metabolic acidosis secondary to acute kidney injury. Plan: I will decrease rate of IV fluids to 75 mL an hour. Continue oral sodium bicarbonate 650 mg twice daily. Repeat electrolytes in the morning. Urine output is improving. I expect her kidney function to recover over the next few days.
--- NOTE | 2016-07-06 18:43 | PN ---
DATE OF SERVICE: 07/06/2016 This 45-year-old woman was admitted with acute cellulitis also renal failure. Urine output improving significantly. The creatinine was improved to 4.18. The patient on broad spectrum IV antibiotics also. No chest pain. No palpitations. No fever. The patient also complains of minimal diplopia. On exam, alert and oriented times three. Pulse is 74, blood pressure 177/70, respiratory rate 14, temperature 98.2, pulse ox 98% on room air. HEENT: Conjunctivae normal. Oral mucosa moist. NECK: No jugular venous distention. CARDIOVASCULAR: S1, S2 muffled. RESPIRATORY: Breath sounds diminished at the bases. No rhonchi. No crackles. ABDOMEN: Soft, nontender. LEGS: No edema. No swelling. CENTRAL NERVOUS SYSTEM: No focal deficits. LABS: CBC within normal limits. Sodium 135, creatinine is 4.18. ASSESSMENT: 1. Acute cellulitis of the right leg, was on vancomycin improving 2. Acute renal failure possible prerenal with acute tubular necrosis. Medications induced possibly NSAIDS as well as dehydration as well as vancomycin. 3. Generalized tiredness and weakness for evaluation, possibly, rule out multiple sclerosis, acute exacerbation. 4. History of multiple sclerosis. Generalized weakness. 5. Tachycardia. 6. History of fibromyalgia. 7. Dehydration, present on admission. 8. Hypertension, essential present on admission. 9. Hypotension related. 10. Gastroesophageal reflux disease. 11. Endometriosis. 12. History of nicotine dependence. 13. Super morbid obesity with body mass index of 54.9. 14. FULL CODE. RECOMMENDATIONS AND DISCUSSION: In this 45 -year-old woman who presented with multiple complex medical issues, we will monitor the patient closely, continue with IV hydration and continue to monitor creatinine closely, which is improved significantly. Closely follow with infectious disease. Continue on antibiotics. Patient also complains of diplopia even though there is no objective findings, we recommend follow up with Dr. Varma regarding possible MS acute exacerbation, continue to monitor. Guarded prognosis. She orders for details. SHERIN
[2016-07-06] MEDS: GABAPENTIN 100 MG CAP PO SCH (21:38)
--- NOTE | 2016-07-06 21:39 | P.PN ---
Subjective This patient is a 45-year-old female was admitted to hospital for right lower extremity cellulitis. She has a history of multiple sclerosis that was diagnosed in 2002. She has been taking interferon therapy with Avonex for the past 8 years. She has a history of arthritis involving the left knee and has been using a walker. She was admitted to the hospital and has been treated for acute cellulitis. Infectious disease is following the patient. Today she had mild symptoms of diplopia. Not unusual given her history of multiple sclerosis. She does not seem to have generalized weakness at this time. Given the fact that she is on antibiotic therapy for treatment of the cellulitis she is not a candidate for high-dose IV steroids at this time. This may be considered once her cellulitis is completely resolved. The patient was noted today to have evidence of snoring. This raises a question of possibility of obstructive sleep apnea. She is also moderately obese. We suggest she be considered for an outpatient sleep study by her primary care physician. The patient denies any evidence of diplopia this evening. Apparently she did have a spell early in the day but it seems to be very limited. She is having a wrap on her right leg for treatment of the cellulitis. She is currently on IV Flexor. We will await further recommendations from infectious disease regarding the extent of her IV antibiotic therapy. Patient does not seem to have prominent findings to be suggesting MS flareup at this time. We will continue close neurological follow-up for the patient during this admission. She should continue with physical therapy exercises and evaluation. Her overall prognosis at this time remains guarded. Objective - Vital Signs Vital signs: Vital Signs Temp 98.0 F 07/06/16 15:00 Pulse 85 07/06/16 15:53 Resp 16 07/06/16 15:53 BP 171/89 07/06/16 15:00 Pulse Ox 96 07/06/16 15:00 Intake & Output 07/06/16 07/06/16 07/07/16 06:59 18:59 06:59 Intake Total 1475 Output Total 1100 1550 400 Balance 375 -1550 -400 Weight 154.221 kg Intake: Intake, IV Titration 1475 Amount Sodium Chloride 0.9% 1, 1375 000 ml @ 75 mls/hr IV . [id number] [facility] Rx#:[id number] ceFAZolin 1,000 mg In 100 Dextrose/Water 1 50ml.bag @ 100 mls/hr IVPB Q12HR [facility] Rx#:[id number] Output: Urine 1100 1550 400 Other: Voiding Method Bedside Commode # Voids 1 # Bowel Movements 1 - Exam Physical examination: PHYSICAL EXAMINATION: Patient is resting comfortably in bed. She was noted to be snoring initially when examined. VITAL SIGNS: Blood pressure is [171/89]. Heart rate is [74]. Respiration is [16] . Temperature is [98.0]. HEENT: Head is atraumatic, neck is supple, there were no carotid bruits. CHEST: Lungs are clear to auscultation and percussion. CARDIAC: S1, S2 normal rate and rhythm. There is no murmur. ABDOMEN: Soft and nontender. Bowel sounds are present. EXTREMITIES: There is no pedal edema. Peripheral pulses are present. Neurological examination: Patient's neurological examination is unchanged from yesterday. - Labs CBC & Chem 7: 07/06/16 07:10 07/06/16 07:10 Labs: Abnormal Lab Results - Last 24 Hours (Table) 07/06/16 07/06/16 Range/Units 07:10 07:10 Lymphocytes # 0.6 L (1.0-4.8) k/uL Sodium 135 L (137-145) mmol/L Carbon Dioxide 19 L (22-30) mmol/L BUN 44 H (7-17) mg/dL Creatinine 4.18 H (0.52-1.04) mg/dL Microbiology - Last 24 Hours (Table) 07/02/16 03:50 Blood Culture - Preliminary Blood No Growth after 96 hours Assessment and Plan Plan: This patient is a 45-year-old female being treated for right lower extremity cellulitis. She has a remote history of multiple sclerosis. She seems to be doing better in terms of the cellulitis involving the right lower extremity. She did have a brief episode of diplopia. She does not have evidence of severe acute MS exacerbation at this time. She will need to come off of antibiotic therapy before considering any steroid therapy for MS exacerbation at this time. We will continue to monitor progress closely. We have recommended she consider a sleep study to be done in the outpatient setting for further evaluation of obstructive sleep apnea. We will continue close neurological follow-up for the patient during this admission. Her overall prognosis at this time remains guarded.
[2016-07-07] MEDS: SODIUM CHLORIDE 0.9% 1,000 ML IV SCH ×6 (04:13→18:18)
[2016-07-07 07:27] LABS: Basophils % (A) 0 %; CH 29.8; CHCM 34.6; Eosinophils # (A) 0.2 k/uL (0-0.7); Eosinophils % (A) 4 %; HCT 31.4 % (34.0-46.0); HDW 3.04; HGB 10.9 gm/dL (11.4-16.0); Luc # (Auto) 0.11; Luc % (Auto) 2; Lymphocytes # (A) 0.6 k/uL (1.0-4.8); Lymphocytes % (A) 11 %; MCH 30.1 pg (25.0-35.0); MCHC 34.8 g/dL (31.0-37.0); MCV 86.5 fL (80.0-100.0); Mean Platelet Volume 6.8; Monocytes # (A) 0.4 k/uL (0-1.0); Monocytes % (A) 6 %; Neutrophils # (A) 4.7 k/uL (1.3-7.7); Neutrophils % (A) 77 %; RBC 3.63 m/uL (3.80-5.40); RDW 13.5 % (11.5-15.5); WBC (Perox) 6.31
[2016-07-07 07:31] LABS: Potassium 4.7 mmol/L (3.5-5.1)
[2016-07-07] MEDS: PANTOPRAZOLE 40 MG TABLET PO SCH (08:33)
[2016-07-07] MEDS: HEPARIN SODIUM,PORCINE 5,000 UNIT/ML 1 ML VIAL SQ SCH ×2 (08:34→18:14)
[2016-07-07] MEDS: BACLOFEN 10 MG TAB PO SCH ×3 (08:34→22:34)
--- NOTE | 2016-07-07 08:34 | PN ---
DATE OF SERVICE: 07/06/2016 REASON FOR FOLLOWUP: Right lower extremity cellulitis. INTERVAL HISTORY: The patient is afebrile. She is breathing comfortably. Denies significant chest pain. No cough. No pain in the right leg area. On examination, blood pressure is 144/86 with a pulse of 77, temperature 97.8. She is 97% on room air. General description is a middle-age female lying in bed in no distress. RESPIRATORY: No difficulty breathing. Clear to auscultation. HEART: S1, S2. Regular rate and rhythm. ABDOMEN: Soft. EXTREMITIES: Slight swelling but improved. LABS: Hemoglobin is 11.7, white count 8.8 with a BUN of 44, creatinine 4.18. DIAGNOSTIC IMPRESSION AND PLAN: Patient admitted with acute right lower extremity cellulitis in a patient who did have nephrotoxicity. Kidney function is slightly improved. Cellulitis is improving currently on cefazolin, therapy with oral antibiotic. Continue supportive care.
[2016-07-07] MEDS: PARoxetine 10 MG TAB PO SCH (08:35)
[2016-07-07] MEDS: CHOLECALCIFEROL 1,000 UNIT TAB PO SCH (08:35)
[2016-07-07] MEDS: tiZANidine 4 MG TAB PO SCH ×4 (08:35→22:34)
[2016-07-07] MEDS: OXcarbazepine 300 MG TAB PO SCH ×2 (08:35→21:46)
[2016-07-07] MEDS: SODIUM BICARBONATE TAB 650 MG TAB PO SCH ×2 (08:35→21:47)
--- NOTE | 2016-07-07 09:00 | P.PN ---
Subjective Patient is seen in follow-up for acute kidney injury. Her baseline creatinine is 0.8. It peaked at 4.2 at this admission and is gradually improving - 3.95 today. Her urine output has improved significantly over 2 L in the last 24 hours. Patient presented with lower extremity cellulitis and was given a dose of IV vancomycin. Her vancomycin level was 38.8 as of July 04 and 28.6 as of July 05 . Vancomycin has been discontinued and she is maintained on IV cefazolin per infectious disease recommendations. She's currently resting in bed. Denies any chest pain or shortness of breath. No vomiting or diarrhea. Appetite is fair. Vital signs are stable. General: The patient appeared well nourished and normally developed. HEENT: Head exam is unremarkable. Neck is without jugular venous distension. LUNGS: Lungs are clear to auscultation and percussion. Breath sounds decreased. HEART: Rate and Rhythm are regular. First and second heart sounds normal. No murmurs, rubs or gallops. ABDOMEN: Abdominal exam reveals normal bowel sounds. Non-tender and non- distended. No evidence of peritonitis. EXTREMITITES: No clubbing, cyanosis, or edema. Objective - Vital Signs Vital signs: Vital Signs Temp 97.4 F L 07/07/16 07:00 Pulse 75 07/07/16 07:00 Resp 16 07/07/16 07:00 BP 158/96 07/07/16 07:00 Pulse Ox 95 07/07/16 07:00 Intake & Output 07/06/16 07/07/16 07/07/16 18:59 06:59 18:59 Output Total 1550 1175 Balance -1550 -1175 Weight 154.221 kg Output: Urine 1550 1175 Other: Voiding Method Bedside Commode # Voids 1 # Bowel Movements 1 - Labs CBC & Chem 7: 07/07/16 06:49 07/07/16 06:49 Labs: Abnormal Lab Results - Last 24 Hours (Table) 07/07/16 07/07/16 Range/Units 06:49 06:49 RBC 3.63 L (3.80-5.40) m/uL Hgb 10.9 L (11.4-16.0) gm/dL Hct 31.4 L (34.0-46.0) % Lymphocytes # 0.6 L (1.0-4.8) k/uL Carbon Dioxide 19 L (22-30) mmol/L BUN 41 H (7-17) mg/dL Creatinine 3.95 H (0.52-1.04) mg/dL Microbiology - Last 24 Hours (Table) 07/02/16 03:50 Blood Culture - Preliminary Blood No Growth after 120 hours Assessment and Plan Plan: assessment: #1. Oliguric - now nonoliguric - acute kidney injury secondary to ATN secondary to NSAIDs and poor oral intake along with vancomycin toxicity. Baseline creatinine is 0.8 and peaked at 4.28 this admission and is 4.18 today. Vancomycin level 38.8 as of July 04 and 28.6 on July 05. Urine eosinophils negative. No evidence of hydronephrosis noted on renal ultrasound. #2. Right lower extremity cellulitis. #3. History of multiple sclerosis. #4. Metabolic acidosis secondary to acute kidney injury. Plan: I will decrease rate of IV fluids to 75 mL an hour. Continue oral sodium bicarbonate 650 mg twice daily. Repeat electrolytes in the morning. Urine output is improving. I expect her kidney function to recover over the next few days.
[2016-07-07] MEDS: ceFAZolin 1,000 MG in DEXTROSE/WATER 1 50ML.BAG IVPB SCH ×2 (10:16→21:47)
--- NOTE | 2016-07-07 11:26 | CDI ---
In responding to this query, please exercise your independent professional judgment. The [facility] Coding Staff and Clinical Documentation Specialists appreciate your assistance in clarifying documentation, maintaining compliance with coding guidelines, accurately documenting patients condition and capturing severity of illness. The fact that a question is asked does not imply that any particular answer is desired or expected. Communication forms are a method of clarifying documentation and are not made part of the Legal Health Record. Thank you in advance for your clarification. Last Revision, December 2014 Jairo Mcarthur [address] [place] [address] Documentation Clarification Form Date: 07/07/2016 10:53:00 AM From: Cass Richey RN, CDS Admit Date: 07/02/2016 4:49:00 AM Patient Name: Deborah Alanis Visit Number: [id number] Dr. Yogi Purvis, 45 year old patient admitted for Sepsis secondary to Right lower extremity Cellulitis right lower extremity after ankle injury Patient history/risk factors: H/O Multiple Sclerosis, Fibromyalgia, Morbid Obesity Clinical Indicators: Lab findings: WBC 22.5 in ED, UA rare bacteria, XR RT TIB/ FIB "no acute fracture, mild degenerative changes, possible soft tissue swelling v. body habitus" Sepsis secondary to right lower extremity cellulitis per ED note, H&P, progress note 07/05, Temp 100.9-101.3-102.0, HR 109-130-129 Treatment: NS bolus in ED then 75/hr, IV Vanco, Silvadene cream daily dressing, ID consult, Please render your clinical opinion as to whether the diagnosis of Sepsis documented in the ED, H&P and Progress Note 07/05 has: Resolved Ongoing/Improving Ruled out Other explanation of clinical findings Unable to determine Please document in your progress notes and discharge summary in order to capture severity of illness and risk of mortality. Include clinical findings that support your diagnosis. FYI: Press F11 to launch patient chart. Place X here if this finding has no clinical significance, is not applicable or if you are not able to provide any additional documentation. MTDD
--- NOTE | 2016-07-07 16:29 | US ---
EXAMINATION TYPE: US carotid duplex BILAT DATE OF EXAM: 07/07/2016 4:15 PM COMPARISON: NONE CLINICAL HISTORY: double vision. Weakness, morbidly obese patient EXAM MEASUREMENTS: RIGHT: Peak Systolic Velocity (PSV) cm/sec ----- Right CCA: 90.8 ----- Right ICA: 98.6 ----- Right ECA: 112.1 ICA/CCA ratio: 1.1 RIGHT: End Diastole cm/sec ----- Right CCA: 36.0 ----- Right ICA: 32.1 ----- Right ECA: 18.7 LEFT: Peak Systolic Velocity (PSV) cm/sec ----- Left CCA: 73.1 ----- Left ICA: 136.6 ----- Left ECA: 63.0 ICA/CCA ratio: 1.9 LEFT: End Diastole cm/sec ----- Left CCA: 19.6 ----- Left ICA: 39.9 ----- Left ECA: 15.3 VERTEBRALS (direction of flow): Right Vertebral: Antegrade Left Vertebral: Antegrade Technically difficult study due to morbidly obese patient Elevated velocities: left proximal ICA, no significant stenosis IMPRESSION: Borderline hemodynamic significant stenosis within the proximal internal carotid artery o n the left by Doppler criteria. Findings could be at least in part technical. Findings approach appr oximately 50-69% diameter reduction. Consider follow-up.
--- NOTE | 2016-07-07 20:06 | PN ---
DATE OF SERVICE: 07/07/2016 This 45-year-old woman, who was admitted with acute cellulitis, also renal failure, multifactorial. The patient being closely monitored at this time. The patient also had carotid Doppler studies recommend by neurology which showed borderline hemodynamically significant stenosis in the proximal and internal carotid artery on the left, 50 to 69% stenosis. No chest pain. No palpitations. No fever. On exam, alert, oriented. Pulse 70, blood pressure 150/82, respirations 16, temperature 97.4, pulse ox 98% on room air. HEENT: Conjunctivae normal. NECK: No jugular venous distention. CARDIOVASCULAR: S1 and S2. RESPIRATORY: Breath sounds diminished at the bases. No rhonchi, no crackles. ABDOMEN: Soft, obese. Nontender. LEGS: Minimal cellulitis. NERVOUS SYSTEM: No focal deficits. LABS: WBC 6, hemoglobin 10.9. Creatinine is 3.95. ASSESSMENT: 1. Acute cellulitis of right leg also on vancomycin, improving, present on admission. 2. Acute renal failure possible prerenal with acute tubular necrosis secondary to medications, NSAIDs, as well as dehydration and vancomycin. 3. Left internal carotid stenosis 50 to 69%. 4. Generalized tiredness and weakness for evaluation, rule out multiple sclerosis acute exacerbation. 5. History of multiple sclerosis with generalized weakness. 6. Tachycardia. 7. History of fibromyalgia. 8. History of dehydration, present on admission. 9. Hypertension, essential, present on admission. 10. Hypotension relative. 11. Gastroesophageal reflux disease. 12. History of endometriosis. 13. History of nicotine dependence. 14. Super morbid obesity with body mass index of 54.9. 15. FULL CODE. RECOMMENDATIONS AND DISCUSSION: I recommend to continue the current medications, continue monitoring and symptomatic treatment. Otherwise monitor closely. Patient is nonoliguric at this time. Otherwise, closely follow with Nephrology. Continue the rest of the medications. Guarded prognosis. Further recommendations to follow. See orders for details.
[2016-07-07] MEDS: GABAPENTIN 100 MG CAP PO SCH ×2 (21:47→22:32)
--- NOTE | 2016-07-07 22:30 | PN ---
DATE OF SERVICE: 07/07/2016 Reason for follow-up is right lower extremity cellulitis. INTERVAL HISTORY: The patient is afebrile, she is breathing comfortably. Denies significant chest pain, cough. No abdominal pain. No diarrhea. On examination, blood pressure is 152/84 with a pulse of 70, temperature 97.6, she is 98% on room air. GENERAL DESCRIPTION: Middle aged female up in the bed in no distress. RESPIRATORY SYSTEM: Unlabored breathing. Clear to auscultation anteriorly. HEART: S1, S2. Regular rate and rhythm. ABDOMEN: Soft, no tenderness. Right lower extremity ulcer has improved. LABS: Hemoglobin is 10.1 with a white count 6.2, BUN of 41, creatinine 0.95. DIAGNOSTIC IMPRESSION AND PLAN: Patient with right lower extremity cellulitis showing overall improvement on the cefazolin. Plan to finish therapy with p.o. Keflex. The patient did have significant improvement in the cellulitis and hence there is in need for high dose steroids per neurology that should be okay from ID standpoint. MTDD
[2016-07-07] MEDS: HYDROcodone/APAP 7.5-325MG 1 EACH TAB PO PRN (23:02)
[2016-07-08] MEDS: HEPARIN SODIUM,PORCINE 5,000 UNIT/ML 1 ML VIAL SQ SCH ×4 (00:58→23:09)
[2016-07-08 08:12] LABS: Basophils % (A) 1 %; CH 29.7; CHCM 33.7; Eosinophils # (A) 0.2 k/uL (0-0.7); Eosinophils % (A) 4 %; HCT 31.4 % (34.0-46.0); HDW 3.01; HGB 10.5 gm/dL (11.4-16.0); Luc # (Auto) 0.15; Luc % (Auto) 3; Lymphocytes # (A) 0.7 k/uL (1.0-4.8); Lymphocytes % (A) 11 %; MCH 29.8 pg (25.0-35.0); MCHC 33.6 g/dL (31.0-37.0); MCV 88.5 fL (80.0-100.0); Mean Platelet Volume 6.4; Monocytes # (A) 0.4 k/uL (0-1.0); Monocytes % (A) 6 %; Neutrophils # (A) 4.7 k/uL (1.3-7.7); Neutrophils % (A) 76 %; RBC 3.54 m/uL (3.80-5.40); RDW 13.8 % (11.5-15.5); WBC 6.2 k/uL (3.8-10.6); WBC (Perox) 6.61
[2016-07-08] MEDS: SODIUM CHLORIDE 0.9% 1,000 ML IV SCH ×2 (08:27→21:41)
[2016-07-08] MEDS: PANTOPRAZOLE 40 MG TABLET PO SCH (08:28)
[2016-07-08] MEDS: BACLOFEN 10 MG TAB PO SCH ×2 (08:28→21:42)
[2016-07-08] MEDS: OXcarbazepine 300 MG TAB PO SCH ×2 (08:29→21:41)
[2016-07-08] MEDS: PARoxetine 10 MG TAB PO SCH (08:30)
[2016-07-08] MEDS: CHOLECALCIFEROL 1,000 UNIT TAB PO SCH (08:31)
[2016-07-08] MEDS: SODIUM BICARBONATE TAB 650 MG TAB PO SCH ×2 (08:31→23:09)
[2016-07-08] MEDS: tiZANidine 4 MG TAB PO SCH ×3 (08:31→21:42)
[2016-07-08 08:35] LABS: Potassium 4.6 mmol/L (3.5-5.1)
[2016-07-08] MEDS: ceFAZolin 1,000 MG in DEXTROSE/WATER 1 50ML.BAG IVPB SCH ×2 (10:06→21:43)
[2016-07-08 15:47] VITALS: RESP 16
--- NOTE | 2016-07-08 16:41 | PN ---
Patient is seen for followup for acute kidney injury secondary to vancomycin toxicity. Her renal function has started to improve with creatinine now down to 3.58 from 3.9 yesterday. She has good urine output. She is currently sitting up on bedside chair. Her vancomycin level was at 28.6 pm 07/05. On examination, blood pressure is 158/78, heart rate 74 per minute. She is afebrile. EXAMINATION OF THE HEART: S1 and S2. EXAMINATION OF THE LUNGS: Bilateral breath sounds are heard. ABDOMEN: Soft, nontender. Examination of lower extremities shows bilateral extremities to be wrapped. Chronic skin changes are noted. Labs show sodium of 139, potassium 4.6, serum creatinine 3.58. Hemoglobin 10.5 g/dL. ASSESSMENT: 1. Acute kidney injury secondary to vancomycin toxicity, currently improving. 2. Cellulitis lower extremities, maintained on IV cefazolin now. 3. History of multiple sclerosis. PLAN: Encourage increased oral intake. Possible discharge by tomorrow. Continue the sodium bicarb for now. I will decrease the IV fluids tomorrow if she has had good oral intake.
--- NOTE | 2016-07-08 19:23 | PN ---
DATE OF SERVICE: 07/08/2016 This 45-year-old woman was admitted to the hospital with acute cellulitis and acute renal failure is being closely monitored. No chest pain. No palpitation. No fever. Patient also had left carotid 50 to 60% also. On exam, alert and oriented times three. Pulse is 74, blood pressure 150/78, respiratory rate 14, temperature 97.8, pulse ox 97% on room air. HEENT: Conjunctivae normal. NECK: No jugular venous distention. CARDIOVASCULAR: S1, S2 muffled. RESPIRATORY: Breath sounds diminished at the bases. No rhonchi, no crackles. ABDOMEN: Soft, nontender. No mass palpable. Legs: Cellulitis. CENTRAL NERVOUS SYSTEM: No focal deficits. LABS: Hemoglobin 10.5, creatinine 3.58. ASSESSMENT: 1. Acute cellulitis of the right leg with on cefazolin improving. 2. Acute renal failure, possibly acute tubular necrosis secondary to medication, dehydration, vancomycin. 3. Left internal carotid stenosis, 50-69%. 4. Generalized weakness and tiredness, improving. 5. History of multiple sclerosis with generalized weakness. 6. Tachycardia, improving. 7. History of fibromyalgia. 8. Dehydration, present on admission. 9. Hypertension. Essential, present on admission. 10. Hypotension relative. 11. History of gastroesophageal reflux disease. 12. History endometriosis. 13. History of nicotine dependence. 14. Super morbid obesity, body mass index 54.9. 15. FULL CODE. RECOMMENDATIONS AND DISCUSSION: Recommend to continue current medications, continue with monitor and symptomatic treatment. Otherwise, we will monitor the patient closely, continue monitoring the creatinine. Otherwise, increase ambulation. Guarded prognosis. Further recommendations to follow. Monitor the creatinine closely. MTDD
[2016-07-08] MEDS: GABAPENTIN 100 MG CAP PO SCH (21:42)
[2016-07-09] MEDS: SODIUM CHLORIDE 0.9% 1,000 ML IV SCH (05:24)
[2016-07-09] MEDS: HYDROcodone/APAP 7.5-325MG 1 EACH TAB PO PRN (05:26)
[2016-07-09] MEDS ORDERED: hydrALAZINE HCL 20 MG/ML 1 ML VIAL IVP PRN ×2 (07:23→11:34)
[2016-07-09 07:48] VITALS: PULSE 86; TEMP 98
[2016-07-09] MEDS: PARoxetine 10 MG TAB PO SCH (07:57)
[2016-07-09] MEDS: BACLOFEN 10 MG TAB PO SCH (07:57)
[2016-07-09] MEDS: PANTOPRAZOLE 40 MG TABLET PO SCH (07:57)
[2016-07-09] MEDS: SODIUM BICARBONATE TAB 650 MG TAB PO SCH (07:57)
[2016-07-09] MEDS: OXcarbazepine 300 MG TAB PO SCH (07:58)
[2016-07-09] MEDS: tiZANidine 4 MG TAB PO SCH (07:58)
[2016-07-09] MEDS: HEPARIN SODIUM,PORCINE 5,000 UNIT/ML 1 ML VIAL SQ SCH (07:58)
[2016-07-09] MEDS: CHOLECALCIFEROL 1,000 UNIT TAB PO SCH (07:58)
[2016-07-09] MEDS: ceFAZolin 1,000 MG in DEXTROSE/WATER 1 50ML.BAG IVPB SCH (08:01)
[2016-07-09 08:42] LABS: Basophils # (A) 0.1 k/uL (0-0.2); Basophils % (A) 1 %; CH 29.5; CHCM 33.2; Eosinophils # (A) 0.3 k/uL (0-0.7); Eosinophils % (A) 4 %; HCT 32.8 % (34.0-46.0); HDW 2.81; HGB 10.7 gm/dL (11.4-16.0); Luc # (Auto) 0.17; Luc % (Auto) 2; Lymphocytes # (A) 0.8 k/uL (1.0-4.8); Lymphocytes % (A) 10 %; MCH 29.2 pg (25.0-35.0); MCHC 32.7 g/dL (31.0-37.0); MCV 89.3 fL (80.0-100.0); Mean Platelet Volume 6.4; Monocytes # (A) 0.3 k/uL (0-1.0); Monocytes % (A) 4 %; Neutrophils # (A) 6.1 k/uL (1.3-7.7); Neutrophils % (A) 79 %; RBC 3.68 m/uL (3.80-5.40); RDW 14.1 % (11.5-15.5); WBC 7.7 k/uL (3.8-10.6)
[2016-07-09 09:01] LABS: Calcium 9.5 mg/dL (8.4-10.2); Potassium 4.2 mmol/L (3.5-5.1)
--- NOTE | 2016-07-09 10:40 | P.GSCN ---
History of Present Illness History of present illness: 45 old white female, history of cellulitis of the lower extremity, history of multiple sclerosis, history of diplopia, history of fall, patient care had ultrasound which showed 50-69% stenosisof TIA or embolus feebleness or motor function are normal Medical history history of hypertension history of possible sleep apnea history of morbid obesity On examination patient what her signs are stable neck is supple no bruit appreciated Chest examination chest is clear first and second sound normal abdomen is protuberant Central nervous system patient has a normal motor function she has a cellulitis of the lower extremity Plan is patient is a is symptomatic from carotid stenosis we will follow as an outpatient at this point no surgical intervention needed thank you very much Past Medical History Past Medical History: Fibromyalgia, GERD/Reflux, Hypertension Additional Past Medical History / Comment(s): MS, endometriosis History of Any Multi-Drug Resistant Organisms: None Reported Past Surgical History: Section, Orthopedic Surgery Additional Past Surgical History / Comment(s): right hip, left foot , left knee , 3 laps for endometriosis, hysterectomy Past Anesthesia/Blood Transfusion Reactions: No Reported Reaction Past Psychological History: No Psychological Hx Reported Smoking Status: Current every day smoker Past Alcohol Use History: Occasional Past Drug Use History: None Reported - Past Family History Mother Family Medical History: Thyroid Disorder Additional Family Medical History / Comment(s): MS, Father Family Medical History: Hypertension Medications and Allergies Home Medications Medication Instructions Recorded Confirmed Type Baclofen [Lioresal] 10 mg PO TID 07/02/16 07/02/16 History Baclofen [Lioresal] 20 mg PO TID 07/02/16 07/02/16 History Biotin 5 mg PO HS 07/02/16 07/02/16 History Cholecalciferol [Vitamin D3] 2,000 unit PO DAILY 07/02/16 07/02/16 History Dextroamphetamine/Amphetamine 25 mg PO QAM 07/02/16 07/02/16 History [Adderall Xr] Esomeprazole Magnesium [NexIUM] 40 mg PO DAILY 07/02/16 07/02/16 History Gabapentin [Neurontin] 200 mg PO HS 07/02/16 07/02/16 History Interferon Beta-1A [Avonex 30 MCG 30 mcg IM MO 07/02/16 07/02/16 History Syringe Kit] OXcarbazepine [Trileptal] 300 mg PO BID 07/02/16 07/02/16 History PARoxetine HCL [Paxil] 30 mg PO DAILY 07/02/16 07/02/16 History Turmeric Root Extract [Turmeric] 500 mg PO BID 07/02/16 07/02/16 History tiZANidine [Zanaflex] 8 mg PO TID 07/02/16 07/02/16 History Allergies Allergy/AdvReac Type Severity Reaction Status Date / Time erythromycin base Allergy Rash/Hives Verified 07/02/16 09:44 Penicillins Allergy Rash/Hives Verified 07/02/16 09:44 Surgical - Exam Vital Signs Temp Pulse Resp BP Pulse Ox 99.1 F 109 H 22 163/121 98 07/02/16 01:05 07/02/16 01:05 07/02/16 01:05 07/02/16 01:05 07/02/16 01:05 Results - Labs 07/09/16 08:33 07/09/16 08:33 Abnormal Lab Results - Last 24 Hours (Table) 07/09/16 07/09/16 Range/Units 08:33 08:33 RBC 3.68 L (3.80-5.40) m/uL Hgb 10.7 L (11.4-16.0) gm/dL Hct 32.8 L (34.0-46.0) % Lymphocytes # 0.8 L (1.0-4.8) k/uL Chloride 111 H (98-107) mmol/L Carbon Dioxide 20 L (22-30) mmol/L BUN 38 H (7-17) mg/dL Creatinine 3.33 H (0.52-1.04) mg/dL Glucose 103 H (74-99) mg/dL Diabetes panel 07/09/16 Range/Units 08:33 Sodium 141 (137-145) mmol/L Potassium 4.2 (3.5-5.1) mmol/L Chloride 111 H (98-107) mmol/L Carbon Dioxide 20 L (22-30) mmol/L BUN 38 H (7-17) mg/dL Creatinine 3.33 H (0.52-1.04) mg/dL Glucose 103 H (74-99) mg/dL Calcium 9.5 (8.4-10.2) mg/dL Calcium panel 07/09/16 Range/Units 08:33 Calcium 9.5 (8.4-10.2) mg/dL Pituitary panel 07/09/16 Range/Units 08:33 Sodium 141 (137-145) mmol/L Potassium 4.2 (3.5-5.1) mmol/L Chloride 111 H (98-107) mmol/L Carbon Dioxide 20 L (22-30) mmol/L BUN 38 H (7-17) mg/dL Creatinine 3.33 H (0.52-1.04) mg/dL Glucose 103 H (74-99) mg/dL Calcium 9.5 (8.4-10.2) mg/dL Adrenal panel 07/09/16 Range/Units 08:33 Sodium 141 (137-145) mmol/L Potassium 4.2 (3.5-5.1) mmol/L Chloride 111 H (98-107) mmol/L Carbon Dioxide 20 L (22-30) mmol/L BUN 38 H (7-17) mg/dL Creatinine 3.33 H (0.52-1.04) mg/dL Glucose 103 H (74-99) mg/dL Calcium 9.5 (8.4-10.2) mg/dL
[2016-07-09] MEDS ORDERED: amLODIPine 10 MG TAB PO STA (12:08)
--- NOTE | 2016-07-09 13:09 | PN ---
DATE OF SERVICE: 07/08/2016 Reason for follow-up is right lower extremity cellulitis. INTERVAL HISTORY: The patient is afebrile. She has been breathing comfortably. Denies any significant chest pain, no cough. No abdominal pain. No worsening pain in the right leg area. On examination, blood pressure 132/76 with a pulse 72, temperature 97.9. She is 100% on room air. General description is a middle aged female lying in bed in no distress. RESPIRATORY SYSTEM: Unlabored breathing. Clear to auscultation anteriorly. HEART: S1, S2 regular rate and rhythm. ABDOMEN: soft, no tenderness. Right leg lower extremity swelling and redness has improved. Laboratory data: Hemoglobin 10.5, white count 6.2, BUN 40, creatinine 3.5. Diagnostic impression and plan: Patient with acute right lower extremity cellulitis and diffuse swelling and redness likely streptococcal disease, currently on Cefazolin that will be continued switch it to oral Keflex at the time of discharge. Continue supportive care. MTDD
[2016-07-09 13:16] VITALS: BP 138/84
--- NOTE | 2016-07-09 14:35 | PN ---
The patient is seen for follow-up for acute kidney injury secondary to vancomycin toxicity. She is currently sitting up in a bedside chair. Patient's IV came out. She has been eating somewhat. No abdominal pain, nausea, or vomiting. Blood pressure 138/84, heart rate 86 per minute. She is afebrile. Examination of the heart S1 and S2. Examination of the lungs, bilateral breath sounds are heard. Decreased breath sounds in bases. ABDOMEN: Soft, morbidly obese. Examination of lower extremities shows bilateral extremities to be wrapped. Labs show serum creatinine 3.3, sodium 141, potassium 4.2. Hemoglobin 10.7 g/dL. ASSESSMENT: 1. Acute kidney injury secondary to vancomycin toxicity, currently improving. Patient can be discharged from nephrology standpoint. 2. Volume overload, will start patient on diuretics and we can discontinue the IV fluids. 3. Lower extremity cellulitis, currently improving. PLAN: Discontinue IV fluids. Start Lasix. If patient does not have an IV, we can use Lasix p.o. She can be discharged and we will need to follow-up in about one week's time as outpatient.
--- NOTE | 2016-07-09 19:32 | PN ---
DATE OF SERVICE: 07/09/2016 Reason for follow-up: Right lower extremity cellulitis. INTERVAL HISTORY: The patient is afebrile. She is breathing comfortably. The patient denies significant chest pain, no cough. No abdominal pain. no pain right leg area. On examination, blood pressure is 138/84 with a pulse of 86, temperature 98. She is 97% on room air. General description is a middle-age female, up in the chair in no distress. RESPIRATORY SYSTEM: Unlabored breathing. Clear to auscultation anteriorly. HEART: S1, S2. Regular rate and rhythm. ABDOMEN: Soft, no tenderness. Right leg overall swelling and redness did improved from the line that was placed. No drainage on the dressing. LABS: Hemoglobin 10.5, white count 7.7, BUN of 38, creatinine 0.33. DIAGNOSTIC IMPRESSION AND PLAN: Patient with right lower extremity cellulitis. The patient did show overall improvment as far as cellulitis is concerned. She will be continued on a short course of oral Keflex along with Jayme wrap to keep the swelling down. Family present at bedside. Their questions and concerns were answered. SHERIN
[2016-07-09] MEDS ORDERED: DOCUSATE 100 MG CAP PO SCH (21:00)
[2016-07-09] MEDS ORDERED: amLODIPine 5 MG TAB PO SCH (21:00)
[2016-07-09] MEDS ORDERED: CEPHALEXIN 500 MG CAP PO SCH (21:00)
[2016-07-10] MEDS ORDERED: TORSEMIDE 20 MG TAB PO SCH (09:00)
--- NOTE | 2016-07-10 15:31 | DS ---
DATE OF ADMISSION: 07/02/2016 DATE OF DISCHARGE: 07/09/2016 FINAL DIAGNOSES: 1. Acute cellulitis of the right leg on cephazolin, improved 2. Acute renal failure, possible acute tubular necrosis secondary to medications, dehydration, vancomycin, multifactorial improving. 3. Left internal artery stenosis 50% to 69%. 4. Generalized weakness and tiredness, improving. 5. History of multiple sclerosis and generalized weakness. 6. Tachycardia, improving. 7. History of fibromyalgia and dehydration, present on admission, improved. 8. Hypertension, essential, present on admission. 9. Hypotension, relative. 10. History of gastroesophageal reflux disease. 11. History of endometriosis. 12. History of nicotine dependence. 13. Super morbid obesity, body mass index of 54.9. 14. FULL CODE. DISCHARGE DISPOSITION: The patient will be discharged in a stable condition with guarded prognosis. Total time taken 35 minutes. HISTORY OF PRESENT ILLNESS: This is a 45-year-old woman with a past medical history of multiple medical problems was admitted with acute cellulitis. Patient also had features of acute renal failure. Creatinine went up to 4.28, improved to 3.83 with conservative line of management. Hemoglobin 10. Multiple consultants include Nephrology and as well as Vascular Surgery saw the patient. See their dictations respective details for further details otherwise. On exam, vitals are stable. CARDIOVASCULAR SYSTEM: S1, S2. ABDOMEN: Soft. NERVOUS SYSTEM: No focal deficit. Hemoglobin 10.7, creatinine 3.3 as mentioned earlier. DISCHARGE ADVICE: 1. Diet is cardiac. 2. Activity limited until follow up. 3. Follow up with primary physician in 1 to 2 days. 4. Follow with Nephrology as recommended. 5. Follow with Vascular Surgery as recommended. MEDICATIONS: 1. Tylenol 650 q.6 p.r.n. 2. Norvasc 5 mg p.o. b.i.d. 3. Lioresal 10 mg p.o. t.i.d. and 20 mg p.o. b.i.d. 4. Biotin 5 mg at bedtime. 5. Keflex 500 mg p.o. b.i.d. for 5 days. 6. Vitamin D3 2000 daily. 7. Dexamphetamine amphetamine 25 mg p.o. daily. 8. Colace 100 mg p.o. b.i.d. 9. esomoprazole Magnesium 40 mg p.o. daily. 11. Neurontin 200 mg q.h.s. 12. Avonex interferon 30 mcg monthly. 13. Trileptal 300 mg p.o. b.i.d. 14. Paxil 30 mg p.o. daily. 15. Sodium bicarb 650 p.o. b.i.d. 16. Zanaflex 8 mg p.o. t.i.d. Once again, the patient will be discharged in a stable condition with guarded prognosis. MTDD
--- NOTE | 2016-07-11 08:52 | CDI ---
In responding to this query, please exercise your independent professional judgment. The [facility] Coding Staff and Clinical Documentation Specialists appreciate your assistance in clarifying documentation, maintaining compliance with coding guidelines, accurately documenting patients condition and capturing severity of illness. The fact that a question is asked does not imply that any particular answer is desired or expected. Communication forms are a method of clarifying documentation and are not made part of the Legal Health Record. Thank you in advance for your clarification. Last Revision, December 2014 Jairoangela Mcarthur [address] [facility] [place] [address] Documentation Clarification Form Date: 07/07/2016 10:53:00 AM From: Cass Richey RN, CDS Admit Date: 07/02/2016 4:49:00 AM Patient Name: Deborah Alanis Visit Number: [id number] Discharge Date: 07/09/2016 Dr. Yogi Purvis, 45 year old patient admitted for Sepsis secondary to Right lower extremity Cellulitis right lower extremity after ankle injury Patient history/risk factors H/O Multiple Sclerosis, Fibromyalgia, Morbid Obesity Clinical Indicators: Lab findings: WBC 22.5 in ED, UA rare bacteria, XR RT TIB/ FIB "no acute fracture, mild degenerative changes, possible soft tissue swelling v. body habitus" Sepsis secondary to right lower extremity cellulitis per ED note, H&P, progress note 07/05, Vital Signs: Temp 100.9-101.3-102.0, HR 109-130-129 Treatment: NS bolus in ED then 75/hr, IV Vanco, Silvadene cream daily dressing, ID consult, Please render your clinical opinion as to whether the diagnosis of Sepsis documented in the ED, H&P and Progress Note 07/05 has: Resolved Ongoing/Improving Ruled out Other explanation of clinical findings Unable to determine Please document in your progress notes and discharge summary in order to capture severity of illness and risk of mortality. Include clinical findings that support your diagnosis. FYI: Press F11 to launch patient chart. Place X here if this finding has no clinical significance, is not applicable or if you are not able to provide any additional documentation. MTDD
--- NOTE | 2016-07-21 18:25 | DS ---
DATE OF ADMISSION: 07/02/2016 DATE OF DISCHARGE: 07/09/2016 ADDENDUM: Sepsis ruled out.
== END 2016-07-09 14:45 | disposition home or self-care (01) | DRG 602 ==
LOC: EC 01:03 → 3SUR 04:49
PROVIDERS: ADMIT Internal Medicine; ATTEND Internal Medicine
DX: L03.115 Cellulitis of right lower limb (principal); N17.0 Acute kidney failure with tubular necrosis; E87.2 Acidosis; I95.9 Hypotension, unspecified; L97.919 Non-pressure chronic ulcer of unspecified part of right lower leg with unspecified severity; Z68.43 Body mass index [BMI] 50.0-59.9, adult; E87.70 Fluid overload, unspecified; E66.01 Morbid (severe) obesity due to excess calories; E86.0 Dehydration; F17.200 Nicotine dependence, unspecified, uncomplicated; G35 Multiple sclerosis; I10 Essential (primary) hypertension; I65.22 Occlusion and stenosis of left carotid artery; K21.9 Gastro-esophageal reflux disease without esophagitis; M79.7 Fibromyalgia; T36.8X5A Adverse effect of other systemic antibiotics, initial encounter; T39.395A Adverse effect of other nonsteroidal anti-inflammatory drugs [NSAID], initial encounter; Z79.899 Other long term (current) drug therapy; Z82.49 Family history of ischemic heart disease and other diseases of the circulatory system; Z88.1 Allergy status to other antibiotic agents; B95.5 Unspecified streptococcus as the cause of diseases classified elsewhere; Z88.0 Allergy status to penicillin; R00.0 Tachycardia, unspecified
CPT/HCPCS: 36415; 76770; 80048; 80053; 80202; 81001; 83605; 85025; 87040; 87205; 93880; 93970; 96365; 96367; 96375; 96376; 99285